=== PATIENT | male | born 1945 | race Caucasian/White ===

== ENCOUNTER 2021-03-21 14:56 | Emergency (ER) | payer MEDICARE ==
[2021-03-21] MEDS ORDERED: ACETAMINOPHEN TAB 500 MG TAB PO STA (16:31)
[2021-03-21] MEDS ORDERED: SODIUM CHLORIDE 0.9% 1,000 ML IV STA (16:33)
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
[2021-03-21 16:47] LABS: Appearance,Urine Clear (Clear); Bilirubin,Urine Negative (Negative); Blood,Urine Negative (Negative); Color,Urine Yellow; Glucose,Urine (UA) Negative (Negative); Ketones,Urine 1+ (Negative); Leukocyte Esterase,Urine Negative (Negative); Nitrite,Urine Negative (Negative); PH, Urine 5.5 (5.0-8.0); Protein,Urine Trace (Negative); Specific Gravity,Urine 1.024 (1.001-1.035); Urobilinogen,Urine <2.0 mg/dL (<2.0)
--- NOTE | 2021-03-21 16:55 | XR ---
EXAMINATION TYPE: XR chest 2V DATE OF EXAM: 03/21/2021 COMPARISON: None available HISTORY: Cough TECHNIQUE: Frontal and lateral views of the chest are obtained. FINDINGS: There are mild bibasilar streaky opacities. No pleural effusion, or pneumothorax seen. Th e cardiac silhouette size is within normal limits. The osseous structures are intact. IMPRESSION: Mild bibasilar opacities concerning for infiltrates in the appropriate clinical setting.
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
[2021-03-21] MEDS ORDERED: SODIUM CHLORIDE 0.9% 50 ML IVPB ONE (17:15)
[2021-03-21 17:22] LABS: Basophils % (A) 0 %; Eosinophils % (A) 0 %; HCT 45.5 % (39.0-53.0); HGB 15.5 gm/dL (13.0-17.5); Lymphocytes # (A) 1.7 k/uL (1.0-4.8); Lymphocytes % (A) 24 %; MCH 30.3 pg (25.0-35.0); MCHC 34.2 g/dL (31.0-37.0); MCV 88.6 fL (80.0-100.0); Mean Platelet Volume 7.2; Monocytes # (A) 0.3 k/uL (0-1.0); Monocytes % (A) 4 %; Neutrophils # (A) 4.8 k/uL (1.3-7.7); Neutrophils % (A) 69 %; Platelet Count 158 k/uL (150-450); RBC 5.13 m/uL (4.30-5.90); WBC 6.9 k/uL (3.8-10.6)
[2021-03-21 17:30] LABS: African American GFR (CKD) >90 (>60 ml/min/1.73 sqM); Anion Gap 11 mmol/L; Blood Urea Nitrogen 20 mg/dL (9-20); Calcium 8.2 mg/dL (8.4-10.2); Carbon Dioxide 24 mmol/L (22-30); Chloride 96 mmol/L (98-107); Glucose 153 mg/dL (74-99); Magnesium 2.1 mg/dL (1.6-2.3); Non-African American GFR(CKD) 83 (>60 ml/min/1.73 sqM); Sodium 131 mmol/L (137-145)
[2021-03-21 17:38] LABS: Potassium 5.6 mmol/L (3.5-5.1)
[2021-03-21] MEDS ORDERED: BAMLANIVIMAB (EUA) 700 MG, ETESEVIMAB (EUA) 1,400 MG in SODIUM CHLORIDE 0.9% 50 ML IVPB ONE (17:45)
[2021-03-21 18:54] VITALS: BP 126/66; PULSE 88; RESP 18; TEMP 98.2
== END 2021-03-21 19:58 | disposition home or self-care (01) ==
LOC: EC 14:56
DX: U07.1 COVID-19 (principal); J12.82 Pneumonia due to coronavirus disease 2019; Z87.891 Personal history of nicotine dependence; V89.2XXA Person injured in unspecified motor-vehicle accident, traffic, initial encounter; Y92.410 Unspecified street and highway as the place of occurrence of the external cause
CPT/HCPCS: 36415; 80048; 83735; 85025; 81003; 87635; 71046; 72125; 70450; 99284; 96360; J3490

== ENCOUNTER → 2023-02-20 | Outpatient (CLI) | payer MEDICARE ==
[2023-02-20 16:32] LABS: ALT 20 U/L (10-49); AST 27 U/L (14-35); Albumin/Globulin Ratio 1.29 Ratio (1.60-3.17); Alkaline Phosphatase 61 U/L (41-126); BUN/Creat Ratio 10.56 Ratio (12.00-20.00); Blood Urea Nitrogen 9.5 mg/dL (9.0-27.0); Carbon Dioxide 24.1 mmol/L (21.6-31.8); Chloride 98 mmol/L (96-109); Globulin 3.1 g/dL (1.6-3.3); Glucose 104 mg/dL (70-110); Sodium 135 mmol/L (135-145); Total Bilirubin 0.9 mg/dL (0.3-1.2); Total Protein 7.1 g/dL (6.2-8.2)
[2023-02-20 16:36] LABS: Basophils # (A) 0.02 X 10*3/uL (0.00-0.10); Basophils % (A) 0.3 %; Eosinophils # (A) 0.03 X 10*3/uL (0.04-0.35); Eosinophils % (A) 0.4 %; HCT 43.9 % (39.6-50.0); HGB 14.8 g/dL (13.0-17.0); Lymphocytes # (A) 2.14 X 10*3/uL (0.90-5.00); MCH 29.5 pg (27.0-32.0); MCHC 33.7 g/dL (32.0-37.0); MCV 87.5 FL (80.0-97.0); Mean Platelet Volume 9.9 FL (9.5-12.2); Monocytes # (A) 0.79 X 10*3/uL (0.20-1.00); Monocytes % (A) 11.1 %; NRBC Per 100 WBC 0 X 10*3/uL (0.00-0.01); Neutrophils # (A) 4.14 X 10*3/uL (1.80-7.70); Neutrophils % (A) 58.1 %; Platelet Count 171 X 10*3/uL (140-440); RBC 5.02 X 10*6/uL (4.40-5.60); WBC 7.13 X 10*3/uL (4.50-10.00)
== END | disposition home or self-care (01) ==
LOC: LABWHC1 10:25
PROVIDERS: ATTEND Family Medicine
DX: U07.1 COVID-19 (principal); R53.83 Other fatigue
CPT/HCPCS: 36415; 80053; 85025

== ENCOUNTER 2023-09-27 23:05 | Inpatient (IN) | payer MEDICARE ==
--- NOTE | 2023-09-27 23:36 | ED ---
Weakness HPI - General Chief complaint: Altered Mental Status Stated complaint: lethargy Time Seen by Provider: 09/27/23 23:09 Source: EMS, RN notes reviewed, old records reviewed Mode of arrival: EMS Limitations: altered mental status - History of Present Illness Initial comments: This is a 78-year-old male to the ER for evaluation. Patient coming in for increased debility for 2 days. Patient per family allegedly was playing golf just 3 to 4 days ago and today is unable to ambulate has been sleeping throughout the day and was pretty diaphoretic sweating and not feeling well at home. 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 and patient has no direct complaints MD Complaint: generalized weakness, lack of energy, difficulty walking -: days(s) Location: generalized Severity: moderate Severity scale (1-10): 5 Consistency: constant Improves with: none Worsens with: none Context: recent illness, history of similar Associated Symptoms: denies other symptoms - Related Data Previous Rx's Medication Instructions Recorded Acetaminophen Tab [Tylenol] 650 mg PO Q6HR PRN tab 10/01/23 Cephalexin [Keflex] 500 mg PO Q8HR 10 Days #30 cap 10/01/23 Tamsulosin [Flomax] 0.4 mg PO PC-BRKFST #30 cap 10/01/23 Allergies Allergy/AdvReac Type Severity Reaction Status Date / Time No Known Allergies Allergy Verified 09/28/23 09:43 Review of Systems ROS Statement: Those systems with pertinent positive or pertinent negative responses have been documented in the HPI. ROS Other: All systems not noted in ROS Statement are negative. Past Medical History Past Medical History: No Reported History History of Any Multi-Drug Resistant Organisms: None Reported Past Surgical History: No Surgical Hx Reported Past Psychological History: No Psychological Hx Reported Smoking Status: Former smoker Past Alcohol Use History: None Reported Past Drug Use History: None Reported General Exam Limitations: altered mental status General appearance: alert, in no apparent distress Head exam: Present: atraumatic, normocephalic, normal inspection Eye exam: Present: normal appearance, PERRL, EOMI. Absent: scleral icterus, conjunctival injection, periorbital swelling ENT exam: Present: normal exam, mucous membranes moist Neck exam: Present: normal inspection. Absent: tenderness, meningismus, lymphadenopathy Respiratory exam: Present: normal lung sounds bilaterally. Absent: respiratory distress, wheezes, rales, rhonchi, stridor Cardiovascular Exam: Present: regular rate, normal rhythm, normal heart sounds. Absent: systolic murmur, diastolic murmur, rubs, gallop, clicks GI/Abdominal exam: Present: soft, normal bowel sounds. Absent: distended, tenderness, guarding, rebound, rigid Extremities exam: Present: normal inspection, full ROM, normal capillary refill. Absent: tenderness, pedal edema, joint swelling, calf tenderness Back exam: Present: normal inspection Neurological exam: Present: alert, oriented X3, CN II-XII intact Psychiatric exam: Present: normal affect, normal mood Skin exam: Present: warm, dry, intact, normal color. Absent: rash Course Vital Signs 09/27/23 09/28/23 09/28/23 23:14 00:00 05:02 Temperature 99.6 F Pulse Rate 97 91 75 Respiratory 18 17 18 Rate Blood Pressure 160/73 150/67 146/72 O2 Sat by Pulse 93 L 95 97 Oximetry 09/28/23 09/28/23 09/28/23 06:00 07:00 07:38 Temperature 103.4 F H Pulse Rate 87 99 Respiratory 18 18 Rate Blood Pressure 132/101 172/84 O2 Sat by Pulse 93 L Oximetry 09/28/23 09/28/23 09/28/23 09:00 09:41 10:08 Temperature 99.6 F Pulse Rate Respiratory Rate Blood Pressure O2 Sat by Pulse 88 L 97 Oximetry 09/28/23 09/28/23 09/28/23 10:21 12:05 12:43 Temperature 99.1 F 98.1 F 98.6 F Pulse Rate 74 68 Respiratory 18 18 Rate Blood Pressure 120/74 125/70 O2 Sat by Pulse 97 98 Oximetry 09/28/23 09/28/23 09/28/23 15:00 16:16 19:34 Temperature 99.3 F 98.8 F 98.4 F Pulse Rate 78 75 Respiratory 16 16 Rate Blood Pressure 120/63 117/52 O2 Sat by Pulse 98 96 Oximetry 09/28/23 09/29/23 09/29/23 23:19 02:00 04:00 Temperature Pulse Rate 57 L 56 L 58 L Respiratory 17 16 Rate Blood Pressure 108/58 110/64 123/68 O2 Sat by Pulse 96 96 97 Oximetry 09/29/23 08:24 Temperature 98.9 F Pulse Rate 74 Respiratory 16 Rate Blood Pressure 135/78 O2 Sat by Pulse 97 Oximetry - Reevaluation(s) Reevaluation #1: 09/28/23 06:47 Records reviewed Reevaluation #2: 09/28/23 06:47 Symptoms unchanged Reevaluation #3: 09/28/23 06:47 Informed of results and questions answered Reevaluation #4: Was pt. sent in by a medical professional or institution (, SHERLYN, CLINICAL APPLICATION MANAGER, urgent care, hospital, or group home...) When possible be specific @ -no Did you speak to anyone other than the patient for history (EMS, parent, family, police, friend...)? What history was obtained from this source @ -no Did you review nursing and triage notes (agree or disagree)? Why? @ -agree Are old charts reviewed (outside hosp., previous admission, EMS record, old EKG, old radiological studies, urgent care reports/EKG's, group home records)? Report findings @ -yes Differential Diagnosis (chest pain, altered mental status, abdominal pain women, abdominal pain men, vaginal bleeding, weakness, fever, dyspnea, syncope, headache, dizziness, GI bleed, back pain, seizure, CVA, palpatations, mental health, musculoskeletal)? @ -prior EKG interpreted by me (3pts min.). @ -yes X-rays interpreted by me (1pt min.). @ -yes negative for acute disease CT interpreted by me (1pt min.). @ -Yes negative for acute disease U/S interpreted by me (1pt. min.). @ -no What testing was considered but not performed or refused? (CT, X-rays, U/S, labs)? Why? @ -none What meds were considered but not given or refused? Why? @ -none Did you discuss the management of the patient with other professionals (professionals i.e. SHERLYN Allan, CLINICAL APPLICATION MANAGER, lab, RT, psych nurse, social secretary, office equipment mechanic, teacher, ground intelligence officer, transplant case manager)? Give summary @ -no Was smoking cessation discussed for >3mins.? @ -no Was critical care preformed (if so, how long)? @ -no Were there social determinants of health that impacted care today? How? (Homelessness, low income, unemployed, alcoholism, drug addiction, transportation, low edu. Level, literacy, decrease access to med. care, alf, rehab)? @ -none Was there de-escalation of care discussed even if they declined (Discuss DNR or withdrawal of care, Hospice)? DNR status @ -no What co-morbidities impacted this encounter? (DM, HTN, Smoking, COPD, CAD, Cancer, CVA, ARF, Chemo, Hep., AIDS, mental health diagnosis, sleep apnea, morbid obesity)? @ -none Was patient admitted / discharged? Hospital course, mention meds given and route, prescriptions, significant lab abnormalities, going to OR and other pertinent info. @ - 78 Male will be admitted for PT OT due to weakness and urinary retention Admitted Undiagnosed new problem with uncertain prognosis? @ -no Drug Therapy requiring intensive monitoring for toxicity (Heparin, Nitro, Insulin, Cardizem)? @ -no Were any procedures done? @ -no Diagnosis/symptom? @ -Weakness debility Acute, or Chronic, or Acute on Chronic? @ -Acute Uncomplicated (without systemic symptoms) or Complicated (systemic symptoms)? @ -Complicated Side effects of treatment? @ -no Exacerbation, Progression, or Severe Exacerbation? @ -exacerbation Poses a threat to life or bodily function? How? (Chest pain, USA, MD, pneumonia, PE, COPD, DKA, ARF, appy, cholecystitis, CVA, Diverticulitis, Homicidal, Suicidal, threat to staff... and all critical care pts) @ -yes with extremes of age Reevaluation #5: Differential Weakness: Hypoglycemia, shock, sepsis, hyponatremia, anemia, infection, MD, ETOH, adverse medicine reaction, overdose, stroke, this is not meant to be an all-inclusive list. - Consultations Consultation #1: Spoke with Dr. Cruz who agrees to admit this patient EKG Findings - EKG Comments: EKG Findings:: EKG is sinus 94 [place] 187 QRS 118 QTc 420 - EKG Results: EKG: interpreted by JUVENCIO Medical Decision Making - Medical Decision Making 78 Male will be admitted for PT OT due to weakness and urinary retention - Lab Data Result diagrams: 10/01/23 12:39 10/01/23 12:39 Lab Results 09/27/23 09/27/23 09/27/23 Range/Units 23:44 23:56 23:56 WBC 7.7 (3.8-10.6) k/uL RBC 4.95 (4.30-5.90) m/uL Hgb 14.8 (13.0-17.5) gm/dL Hct 43.8 (39.0-53.0) % MCV 88.5 (80.0-100.0) fL MCH 29.8 (25.0-35.0) pg MCHC 33.7 (31.0-37.0) g/dL RDW 13.2 (11.5-15.5) % Plt Count 203 (150-450) k/uL MPV 7.8 Immature Gran % (Auto) % Absolute Nucleated RBC % Neutrophils % 87 % Lymphocytes % 6 % Monocytes % 5 % Eosinophils % 0 % Basophils % 0 % Immature Gran # (0.00-0.04) X 10*3/uL Neutrophils # 6.7 (1.3-7.7) k/uL Lymphocytes # 0.5 L (1.0-4.8) k/uL Monocytes # 0.4 (0-1.0) k/uL Eosinophils # 0.0 (0-0.7) k/uL Basophils # 0.0 (0-0.2) k/uL NRBC/100 WBC Diff (0.00-0.01) X 10*3/uL PT 11.2 (10.0-12.5) sec INR 1.0 (<1.2) APTT 23.1 (22.0-30.0) sec Sodium (137-145) mmol/L Potassium (3.5-5.1) mmol/L Chloride (98-107) mmol/L Carbon Dioxide (22-30) mmol/L Anion Gap mmol/L BUN (9-20) mg/dL Creatinine (0.66-1.25) mg/dL Est GFR (CKD-EPI) (>=60) Est GFR (CKD-EPI)AfAm (>60 ml/min/1.73 sqM) Est GFR (CKD-EPI)NonAf (>60 ml/min/1.73 sqM) BUN/Creatinine Ratio (12.00-20.00) Ratio Glucose (74-99) mg/dL Estimated Ave Glu mg/dL mg/dL Hemoglobin A1c (<=6.0) % Plasma Lactic Acid Dylan (0.7-2.0) mmol/L Calcium (8.4-10.2) mg/dL Phosphorus (2.5-4.5) mg/dL Magnesium (1.6-2.3) mg/dL Total Bilirubin (0.2-1.3) mg/dL AST (17-59) U/L ALT (4-49) U/L Alkaline Phosphatase (38-126) U/L Ammonia (<30) umol/L Creatine Kinase (55-170) U/L Troponin I (0.000-0.034) ng/mL Total Protein (6.3-8.2) g/dL Albumin (3.5-5.0) g/dL Globulin (1.6-3.3) g/dL Albumin/Globulin Ratio (1.60-3.17) Ratio Vitamin B12 (200.0-944.0) pg/mL Folate (4.40-31.00) ng/mL TSH (0.465-4.680) mIU/L Urine Color Urine Appearance (Clear) Urine pH (5.0-8.0) Ur Specific [place] (1.001-1.035) Urine Protein (Negative) Urine Glucose (UA) (Negative) Urine Ketones (Negative) Urine Blood (Negative) Urine Nitrite (Negative) Urine Bilirubin (Negative) Urine Urobilinogen (<2.0) mg/dL Ur Leukocyte Esterase (Negative) Urine RBC (0-5) /hpf Urine WBC (0-5) /hpf Ur Squamous Epith Cells (0-4) /hpf Urine Bacteria (None) /hpf Hyaline Casts (0-2) /lpf Urine Mucus (None) /hpf Urine Opiates Screen (NotDetected) Ur Oxycodone Screen (NotDetected) Urine Methadone Screen (NotDetected) Ur Barbiturates Screen (NotDetected) U Tricyclic Antidepress (NotDetected) Ur Phencyclidine Scrn (NotDetected) Ur Amphetamines Screen (NotDetected) U Methamphetamines Scrn (NotDetected) U Benzodiazepines Scrn (NotDetected) Urine Cocaine Screen (NotDetected) U Marijuana (THC) Screen (NotDetected) Influenza Type A (PCR) Not Detected (Not Detectd) Influenza Type B (PCR) Not Detected (Not Detectd) RSV (PCR) Not Detected (Not Detectd) SARS-CoV-2 (PCR) Not Detected (Not Detectd) 09/27/23 09/27/23 09/27/23 Range/Units 23:56 23:56 23:56 WBC (3.8-10.6) k/uL RBC (4.30-5.90) m/uL Hgb (13.0-17.5) gm/dL Hct (39.0-53.0) % MCV (80.0-100.0) fL MCH (25.0-35.0) pg MCHC (31.0-37.0) g/dL RDW (11.5-15.5) % Plt Count (150-450) k/uL MPV Immature Gran % (Auto) % Absolute Nucleated RBC % Neutrophils % % Lymphocytes % % Monocytes % % Eosinophils % % Basophils % % Immature Gran # (0.00-0.04) X 10*3/uL Neutrophils # (1.3-7.7) k/uL Lymphocytes # (1.0-4.8) k/uL Monocytes # (0-1.0) k/uL Eosinophils # (0-0.7) k/uL Basophils # (0-0.2) k/uL NRBC/100 WBC Diff (0.00-0.01) X 10*3/uL PT (10.0-12.5) sec INR (<1.2) APTT (22.0-30.0) sec Sodium 135 L (137-145) mmol/L Potassium 4.2 (3.5-5.1) mmol/L Chloride 101 (98-107) mmol/L Carbon Dioxide 21 L (22-30) mmol/L Anion Gap 13 mmol/L BUN 19 (9-20) mg/dL Creatinine 1.21 (0.66-1.25) mg/dL Est GFR (CKD-EPI) (>=60) Est GFR (CKD-EPI)AfAm 66 (>60 ml/min/1.73 sqM) Est GFR (CKD-EPI)NonAf 57 (>60 ml/min/1.73 sqM) BUN/Creatinine Ratio (12.00-20.00) Ratio Glucose 196 H (74-99) mg/dL Estimated Ave Glu mg/dL mg/dL Hemoglobin A1c (<=6.0) % Plasma Lactic Acid Dylan 1.9 (0.7-2.0) mmol/L Calcium 8.9 (8.4-10.2) mg/dL Phosphorus 3.3 (2.5-4.5) mg/dL Magnesium 2.1 (1.6-2.3) mg/dL Total Bilirubin 1.3 (0.2-1.3) mg/dL AST 80 H (17-59) U/L ALT 44 (4-49) U/L Alkaline Phosphatase 81 (38-126) U/L Ammonia (<30) umol/L Creatine Kinase (55-170) U/L Troponin I 0.019 (0.000-0.034) ng/mL Total Protein 7.3 (6.3-8.2) g/dL Albumin 4.1 (3.5-5.0) g/dL Globulin (1.6-3.3) g/dL Albumin/Globulin Ratio (1.60-3.17) Ratio Vitamin B12 (200.0-944.0) pg/mL Folate (4.40-31.00) ng/mL TSH 4.530 (0.465-4.680) mIU/L Urine Color Urine Appearance (Clear) Urine pH (5.0-8.0) Ur Specific [place] (1.001-1.035) Urine Protein (Negative) Urine Glucose (UA) (Negative) Urine Ketones (Negative) Urine Blood (Negative) Urine Nitrite (Negative) Urine Bilirubin (Negative) Urine Urobilinogen (<2.0) mg/dL Ur Leukocyte Esterase (Negative) Urine RBC (0-5) /hpf Urine WBC (0-5) /hpf Ur Squamous Epith Cells (0-4) /hpf Urine Bacteria (None) /hpf Hyaline Casts (0-2) /lpf Urine Mucus (None) /hpf Urine Opiates Screen (NotDetected) Ur Oxycodone Screen (NotDetected) Urine Methadone Screen (NotDetected) Ur Barbiturates Screen (NotDetected) U Tricyclic Antidepress (NotDetected) Ur Phencyclidine Scrn (NotDetected) Ur Amphetamines Screen (NotDetected) U Methamphetamines Scrn (NotDetected) U Benzodiazepines Scrn (NotDetected) Urine Cocaine Screen (NotDetected) U Marijuana (THC) Screen (NotDetected) Influenza Type A (PCR) (Not Detectd) Influenza Type B (PCR) (Not Detectd) RSV (PCR) (Not Detectd) SARS-CoV-2 (PCR) (Not Detectd) 09/27/23 09/28/23 09/28/23 Range/Units 23:56 00:17 00:17 WBC (3.8-10.6) k/uL RBC (4.30-5.90) m/uL Hgb (13.0-17.5) gm/dL Hct (39.0-53.0) % MCV (80.0-100.0) fL MCH (25.0-35.0) pg MCHC (31.0-37.0) g/dL RDW (11.5-15.5) % Plt Count (150-450) k/uL MPV Immature Gran % (Auto) % Absolute Nucleated RBC % Neutrophils % % Lymphocytes % % Monocytes % % Eosinophils % % Basophils % % Immature Gran # (0.00-0.04) X 10*3/uL Neutrophils # (1.3-7.7) k/uL Lymphocytes # (1.0-4.8) k/uL Monocytes # (0-1.0) k/uL Eosinophils # (0-0.7) k/uL Basophils # (0-0.2) k/uL NRBC/100 WBC Diff (0.00-0.01) X 10*3/uL PT (10.0-12.5) sec INR (<1.2) APTT (22.0-30.0) sec Sodium (137-145) mmol/L Potassium (3.5-5.1) mmol/L Chloride (98-107) mmol/L Carbon Dioxide (22-30) mmol/L Anion Gap mmol/L BUN (9-20) mg/dL Creatinine (0.66-1.25) mg/dL Est GFR (CKD-EPI) (>=60) Est GFR (CKD-EPI)AfAm (>60 ml/min/1.73 sqM) Est GFR (CKD-EPI)NonAf (>60 ml/min/1.73 sqM) BUN/Creatinine Ratio (12.00-20.00) Ratio Glucose (74-99) mg/dL Estimated Ave Glu mg/dL 134 mg/dL Hemoglobin A1c 6.3 H (<=6.0) % Plasma Lactic Acid Dylan (0.7-2.0) mmol/L Calcium (8.4-10.2) mg/dL Phosphorus (2.5-4.5) mg/dL Magnesium (1.6-2.3) mg/dL Total Bilirubin (0.2-1.3) mg/dL AST (17-59) U/L ALT (4-49) U/L Alkaline Phosphatase (38-126) U/L Ammonia (<30) umol/L Creatine Kinase (55-170) U/L Troponin I (0.000-0.034) ng/mL Total Protein (6.3-8.2) g/dL Albumin (3.5-5.0) g/dL Globulin (1.6-3.3) g/dL Albumin/Globulin Ratio (1.60-3.17) Ratio Vitamin B12 926.0 (200.0-944.0) pg/mL Folate 31.90 H (4.40-31.00) ng/mL TSH (0.465-4.680) mIU/L Urine Color Urine Appearance (Clear) Urine pH (5.0-8.0) Ur Specific [place] (1.001-1.035) Urine Protein (Negative) Urine Glucose (UA) (Negative) Urine Ketones (Negative) Urine Blood (Negative) Urine Nitrite (Negative) Urine Bilirubin (Negative) Urine Urobilinogen (<2.0) mg/dL Ur Leukocyte Esterase (Negative) Urine RBC (0-5) /hpf Urine WBC (0-5) /hpf Ur Squamous Epith Cells (0-4) /hpf Urine Bacteria (None) /hpf Hyaline Casts (0-2) /lpf Urine Mucus (None) /hpf Urine Opiates Screen (NotDetected) Ur Oxycodone Screen (NotDetected) Urine Methadone Screen (NotDetected) Ur Barbiturates Screen (NotDetected) U Tricyclic Antidepress (NotDetected) Ur Phencyclidine Scrn (NotDetected) Ur Amphetamines Screen (NotDetected) U Methamphetamines Scrn (NotDetected) U Benzodiazepines Scrn (NotDetected) Urine Cocaine Screen (NotDetected) U Marijuana (THC) Screen (NotDetected) Influenza Type A (PCR) (Not Detectd) Influenza Type B (PCR) (Not Detectd) RSV (PCR) (Not Detectd) SARS-CoV-2 (PCR) (Not Detectd) 09/28/23 09/28/23 09/28/23 Range/Units 03:20 03:20 14:27 WBC (3.8-10.6) k/uL RBC (4.30-5.90) m/uL Hgb (13.0-17.5) gm/dL Hct (39.0-53.0) % MCV (80.0-100.0) fL MCH (25.0-35.0) pg MCHC (31.0-37.0) g/dL RDW (11.5-15.5) % Plt Count (150-450) k/uL MPV Immature Gran % (Auto) % Absolute Nucleated RBC % Neutrophils % % Lymphocytes % % Monocytes % % Eosinophils % % Basophils % % Immature Gran # (0.00-0.04) X 10*3/uL Neutrophils # (1.3-7.7) k/uL Lymphocytes # (1.0-4.8) k/uL Monocytes # (0-1.0) k/uL Eosinophils # (0-0.7) k/uL Basophils # (0-0.2) k/uL NRBC/100 WBC Diff (0.00-0.01) X 10*3/uL PT (10.0-12.5) sec INR (<1.2) APTT (22.0-30.0) sec Sodium (137-145) mmol/L Potassium (3.5-5.1) mmol/L Chloride (98-107) mmol/L Carbon Dioxide (22-30) mmol/L Anion Gap mmol/L BUN (9-20) mg/dL Creatinine (0.66-1.25) mg/dL Est GFR (CKD-EPI) (>=60) Est GFR (CKD-EPI)AfAm (>60 ml/min/1.73 sqM) Est GFR (CKD-EPI)NonAf (>60 ml/min/1.73 sqM) BUN/Creatinine Ratio (12.00-20.00) Ratio Glucose (74-99) mg/dL Estimated Ave Glu mg/dL mg/dL Hemoglobin A1c (<=6.0) % Plasma Lactic Acid Dylan (0.7-2.0) mmol/L Calcium (8.4-10.2) mg/dL Phosphorus (2.5-4.5) mg/dL Magnesium (1.6-2.3) mg/dL Total Bilirubin (0.2-1.3) mg/dL AST (17-59) U/L ALT (4-49) U/L Alkaline Phosphatase (38-126) U/L Ammonia (<30) umol/L Creatine Kinase 1010 H* (55-170) U/L Troponin I (0.000-0.034) ng/mL Total Protein (6.3-8.2) g/dL Albumin (3.5-5.0) g/dL Globulin (1.6-3.3) g/dL Albumin/Globulin Ratio (1.60-3.17) Ratio Vitamin B12 (200.0-944.0) pg/mL Folate (4.40-31.00) ng/mL TSH (0.465-4.680) mIU/L Urine Color Yellow Urine Appearance Clear (Clear) Urine pH 5.5 (5.0-8.0) Ur Specific [place] 1.019 (1.001-1.035) Urine Protein Trace H (Negative) Urine Glucose (UA) Trace H (Negative) Urine Ketones 1+ H (Negative) Urine Blood Small H (Negative) Urine Nitrite Negative (Negative) Urine Bilirubin Negative (Negative) Urine Urobilinogen <2.0 (<2.0) mg/dL Ur Leukocyte Esterase Negative (Negative) Urine RBC 8 H (0-5) /hpf Urine WBC 1 (0-5) /hpf Ur Squamous Epith Cells <1 (0-4) /hpf Urine Bacteria Rare H (None) /hpf Hyaline Casts 4 H (0-2) /lpf Urine Mucus Rare H (None) /hpf Urine Opiates Screen Not Detected (NotDetected) Ur Oxycodone Screen Not Detected (NotDetected) Urine Methadone Screen Not Detected (NotDetected) Ur Barbiturates Screen Not Detected (NotDetected) U Tricyclic Antidepress Not Detected (NotDetected) Ur Phencyclidine Scrn Not Detected (NotDetected) Ur Amphetamines Screen Not Detected (NotDetected) U Methamphetamines Scrn Not Detected (NotDetected) U Benzodiazepines Scrn Not Detected (NotDetected) Urine Cocaine Screen Not Detected (NotDetected) U Marijuana (THC) Screen Not Detected (NotDetected) Influenza Type A (PCR) (Not Detectd) Influenza Type B (PCR) (Not Detectd) RSV (PCR) (Not Detectd) SARS-CoV-2 (PCR) (Not Detectd) 09/28/23 09/29/23 09/29/23 Range/Units 14:27 07:24 07:24 WBC 5.30 (3.8-10.6) k/uL RBC 4.18 L (4.30-5.90) m/uL Hgb 12.5 L (13.0-17.5) gm/dL Hct 37.6 L (39.0-53.0) % MCV 90.0 (80.0-100.0) fL MCH 29.9 (25.0-35.0) pg MCHC 33.2 (31.0-37.0) g/dL RDW 13.4 (11.5-15.5) % Plt Count 166 (150-450) k/uL MPV 9.8 Immature Gran % (Auto) 0.80 % Absolute Nucleated RBC 0 % Neutrophils % 63.1 % Lymphocytes % 26.4 % Monocytes % 8.7 % Eosinophils % 0.6 % Basophils % 0.4 % Immature Gran # 0.04 (0.00-0.04) X 10*3/uL Neutrophils # 3.35 (1.3-7.7) k/uL Lymphocytes # 1.40 (1.0-4.8) k/uL Monocytes # 0.46 (0-1.0) k/uL Eosinophils # 0.03 L (0-0.7) k/uL Basophils # 0.02 (0-0.2) k/uL NRBC/100 WBC Diff 0 (0.00-0.01) X 10*3/uL PT (10.0-12.5) sec INR (<1.2) APTT (22.0-30.0) sec Sodium 139 (137-145) mmol/L Potassium 4.0 (3.5-5.1) mmol/L Chloride 104 (98-107) mmol/L Carbon Dioxide 22.5 (22-30) mmol/L Anion Gap 12.50 H mmol/L BUN 11.7 (9-20) mg/dL Creatinine 0.8 (0.66-1.25) mg/dL Est GFR (CKD-EPI) 90 (>=60) Est GFR (CKD-EPI)AfAm (>60 ml/min/1.73 sqM) Est GFR (CKD-EPI)NonAf (>60 ml/min/1.73 sqM) BUN/Creatinine Ratio 14.62 (12.00-20.00) Ratio Glucose 150 H (74-99) mg/dL Estimated Ave Glu mg/dL mg/dL Hemoglobin A1c (<=6.0) % Plasma Lactic Acid Dylan (0.7-2.0) mmol/L Calcium 8.0 L (8.4-10.2) mg/dL Phosphorus (2.5-4.5) mg/dL Magnesium 2.2 (1.6-2.3) mg/dL Total Bilirubin 0.5 (0.2-1.3) mg/dL AST 86 H (17-59) U/L ALT 56 H (4-49) U/L Alkaline Phosphatase 67 (38-126) U/L Ammonia <9 (<30) umol/L Creatine Kinase 679 H (55-170) U/L Troponin I (0.000-0.034) ng/mL Total Protein 5.9 L (6.3-8.2) g/dL Albumin 3.4 L (3.5-5.0) g/dL Globulin 2.5 (1.6-3.3) g/dL Albumin/Globulin Ratio 1.36 L (1.60-3.17) Ratio Vitamin B12 (200.0-944.0) pg/mL Folate (4.40-31.00) ng/mL TSH (0.465-4.680) mIU/L Urine Color Urine Appearance (Clear) Urine pH (5.0-8.0) Ur Specific [place] (1.001-1.035) Urine Protein (Negative) Urine Glucose (UA) (Negative) Urine Ketones (Negative) Urine Blood (Negative) Urine Nitrite (Negative) Urine Bilirubin (Negative) Urine Urobilinogen (<2.0) mg/dL Ur Leukocyte Esterase (Negative) Urine RBC (0-5) /hpf Urine WBC (0-5) /hpf Ur Squamous Epith Cells (0-4) /hpf Urine Bacteria (None) /hpf Hyaline Casts (0-2) /lpf Urine Mucus (None) /hpf Urine Opiates Screen (NotDetected) Ur Oxycodone Screen (NotDetected) Urine Methadone Screen (NotDetected) Ur Barbiturates Screen (NotDetected) U Tricyclic Antidepress (NotDetected) Ur Phencyclidine Scrn (NotDetected) Ur Amphetamines Screen (NotDetected) U Methamphetamines Scrn (NotDetected) U Benzodiazepines Scrn (NotDetected) Urine Cocaine Screen (NotDetected) U Marijuana (THC) Screen (NotDetected) Influenza Type A (PCR) (Not Detectd) Influenza Type B (PCR) (Not Detectd) RSV (PCR) (Not Detectd) SARS-CoV-2 (PCR) (Not Detectd) - EKG Data -: EKG Interpreted by Me - Radiology Data Radiology results: report reviewed (X-ray and CT pelvis is negative for acute disease), image reviewed Disposition Clinical Impression: Altered mental status, Weakness, Urinary retention Disposition: ADMITTED IP TO THIS [facility] Condition: Stable Is patient prescribed a controlled substance at d/c from ED?: No Time of Disposition: 06:45
[2023-09-28 00:22] LABS: Basophils % (A) 0 %; Eosinophils % (A) 0 %; HCT 43.8 % (39.0-53.0); HGB 14.8 gm/dL (13.0-17.5); Lymphocytes # (A) 0.5 k/uL (1.0-4.8); Lymphocytes % (A) 6 %; MCH 29.8 pg (25.0-35.0); MCHC 33.7 g/dL (31.0-37.0); MCV 88.5 fL (80.0-100.0); Mean Platelet Volume 7.8; Monocytes # (A) 0.4 k/uL (0-1.0); Monocytes % (A) 5 %; Neutrophils # (A) 6.7 k/uL (1.3-7.7); Neutrophils % (A) 87 %; Platelet Count 203 k/uL (150-450); RBC 4.95 m/uL (4.30-5.90); RDW 13.2 % (11.5-15.5); WBC 7.7 k/uL (3.8-10.6)
[2023-09-28] MEDS: SODIUM CHLORIDE 0.9% 1,000 ML IV STA ×2 (00:28→02:27)
[2023-09-28 00:32] LABS: ALT 44 U/L (4-49); AST 80 U/L (17-59); African American GFR (CKD) 66 (>60 ml/min/1.73 sqM); Albumin 4.1 g/dL (3.5-5.0); Alkaline Phosphatase 81 U/L (38-126); Anion Gap 13 mmol/L; Blood Urea Nitrogen 19 mg/dL (9-20); Calcium 8.9 mg/dL (8.4-10.2); Carbon Dioxide 21 mmol/L (22-30); Chloride 101 mmol/L (98-107); Glucose 196 mg/dL (74-99); Magnesium 2.1 mg/dL (1.6-2.3); Non-African American GFR(CKD) 57 (>60 ml/min/1.73 sqM); Phosphorus 3.3 mg/dL (2.5-4.5); Potassium 4.2 mmol/L (3.5-5.1); Sodium 135 mmol/L (137-145); Total Bilirubin 1.3 mg/dL (0.2-1.3); Total Protein 7.3 g/dL (6.3-8.2)
[2023-09-28 00:52] LABS: Partial Thromboplastin Time 23.1 sec (22.0-30.0); Prothrombin Time 11.2 sec (10.0-12.5)
--- NOTE | 2023-09-28 02:32 | XR ---
EXAM: XR Chest, 2 Views CLINICAL HISTORY: weak TECHNIQUE: Frontal and lateral views of the chest. COMPARISON: 03/21/21 FINDINGS: Lungs: Unremarkable. No consolidation. Pleural space: Unremarkable. Mediastinum: Unremarkable. Normal mediastinal contour. Bones/joints: No acute findings. IMPRESSION: No acute findings.
[2023-09-28 04:02] LABS: Appearance,Urine Clear (Clear); Bacteria,Urine Rare /hpf; Bilirubin,Urine Negative (Negative); Blood,Urine Small (Negative); Color,Urine Yellow; Glucose,Urine (UA) Trace (Negative); Hyaline Casts,Urine 4 /lpf (0-2); Ketones,Urine 1+ (Negative); Leukocyte Esterase,Urine Negative (Negative); Mucus,Urine Rare /hpf; Nitrite,Urine Negative (Negative); PH, Urine 5.5 (5.0-8.0); Protein,Urine Trace (Negative); RBC,Urine 8 /hpf (0-5); Specific Gravity,Urine 1.019 (1.001-1.035); Squamous Epithelial Cell,Urine <1 /hpf (0-4); Urobilinogen,Urine <2.0 mg/dL (<2.0); WBC,Urine 1 /hpf (0-5)
[2023-09-28] MEDS: SODIUM CHLORIDE 0.9% 1,000 ML BAG IV STA (04:07)
--- NOTE | 2023-09-28 04:44 | CT ---
EXAM: CT Abdomen and Pelvis With Intravenous Contrast CLINICAL HISTORY: increasing weakness and fatigue over the last 3 days and declining mental status. In morning pt. Was able walking slowly, and now pt. is unable to walk. now has abdominal pain. TECHNIQUE: Axial computed tomography images of the abdomen and pelvis with intravenous contrast. CTDI is 23.7 mGy and DLP is 1209.4 mGy-cm. This CT exam was performed using one or more of the following dose reduction techniques: automated exposure control, adjustment of the mA and/or kV according to patient size, and/or use of iterative reconstruction technique. Coronal and sagittal reformatted images were created and reviewed. 471 images COMPARISON: No relevant prior studies available. FINDINGS: Lung bases: Unremarkable. No mass. No consolidation. ABDOMEN: Liver: Mildly enlarged fatty liver. Gallbladder and bile ducts: Unremarkable. No calcified stones. No ductal dilation. Pancreas: Unremarkable. No mass. No ductal dilation. Spleen: Unremarkable. No splenomegaly. Adrenals: Unremarkable. No mass. Kidneys and ureters: Unremarkable. No solid mass. No hydronephrosis. Stomach and bowel: Mild colonic diverticulosis. No obstruction. No mucosal thickening. PELVIS: Appendix: Normal appendix. Bladder: Bladder contains a Roldan catheter balloon and moderate amount of gas with asymmetrical posterior wall thickening measuring up to 10 mm on series 203 image 75, can represent muscle hypertrophy versus cystitis. Reproductive: Unremarkable as visualized. ABDOMEN and PELVIS: Intraperitoneal space: Unremarkable. No free air. No significant fluid collection. Bones/joints: Advanced degenerative disc disease at L5-S1 causing severe right neuroforaminal narrowing, likely compressing the right exiting nerve root at L5. 5 mm anterolisthesis of L4 on L5. Soft tissues: Unremarkable. Vasculature: Small amount of atherosclerotic calcifications. No abdominal aortic aneurysm. Lymph nodes: Unremarkable. No enlarged lymph nodes. IMPRESSION: Bladder contains a Roldan catheter balloon and moderate amount of gas with asymmetrical posterior wall thickening measuring can be due to muscle hypertrophy versus cystitis. Please correlate with clinical and laboratory findings.
[2023-09-28] MEDS ORDERED: NALOXONE 0.4 MG/ML 1 ML VIAL IV PRN (06:44)
[2023-09-28] MEDS ORDERED: MORPHINE SULFATE 4 MG/ML SYRINGE IV PRN (06:44)
[2023-09-28] MEDS ORDERED: ONDANSETRON 4 MG/2 ML VIAL IVP PRN (06:44)
[2023-09-28] MEDS: SODIUM CHLORIDE 0.9% 1,000 ML IV SCH ×2 (07:08→17:06)
[2023-09-28] MEDS: IBUPROFEN IV 800 MG in SODIUM CHLORIDE 0.9% 250 ML IV ONE (07:36)
[2023-09-28] MEDS: ACETAMINOPHEN IV (For NPO) 1,000 MG in EMPTY BAG 1 BAG IVPB STA (08:16)
[2023-09-28 08:20] LABS: Amphetamine Screen,Urine Not Detected (NotDetected); Barbiturate Screen,Urine Not Detected (NotDetected); Benzodiazepines Screen,Urine Not Detected (NotDetected); Cocaine Screen,Urine Not Detected (NotDetected); Methadone Screen, Urine Not Detected (NotDetected); Opiate Screen,Urine Not Detected (NotDetected); Oxycodone Screen, Urine Not Detected (NotDetected); Phencyclidine Screen,Urine Not Detected (NotDetected); Tricyclic Antidepressant,Urine Not Detected (NotDetected); Urn Cannabinoid Scrn Not Detected (NotDetected)
--- NOTE | 2023-09-28 10:12 | P.HPIM ---
History of Present Illness H&P Date: 09/28/23 Chief Complaint: Weakness and urinary retention This is a 78-year-old male that comes to the office early. His son was at bedside reports that he went golfing 9 holes 1 week ago. That he had seen him on Friday and that he had a fall at home and it was just not himself. He lives with his daughter primarily. She works regularly and is not there all the time. His son reports other history from the daughter while the patient is rather quiet. The patient indicates that is just not feeling himself. His son reports that he had visited and his father had to urinate quite bad but indicates he was unable to go. He also indicates he is fallen several times this week in the emergency room was found to have significant urinary retention 800+ cc in his bladder. When examining today he was found to have a pulse ox in the 80s on room air. Currently denies any chest pains pressure shortness of breath nausea or vomiting. Vital signs are currently stable however the patient did have a fever of 103.4 early this morning. Labs show essentially normal except for glucose of 196. AST was slightly elevated, CT abdomen pelvis was reviewed. Review of Systems All systems: negative Past Medical History Past Medical History: No Reported History History of Any Multi-Drug Resistant Organisms: None Reported Past Surgical History: No Surgical Hx Reported Past Psychological History: No Psychological Hx Reported Smoking Status: Former smoker Past Alcohol Use History: None Reported Past Drug Use History: None Reported Medications and Allergies Home Medications Medication Instructions Recorded Confirmed Type No Known Home Medications 03/21/21 09/28/23 History Allergies Allergy/AdvReac Type Severity Reaction Status Date / Time No Known Allergies Allergy Verified 09/28/23 09:43 Physical Exam Vitals: Vital Signs Temp Pulse Resp BP Pulse Ox 09/28/23 09:41 88 L 09/28/23 09:00 99.6 F 09/28/23 07:38 99 18 172/84 93 L 09/28/23 07:00 103.4 F H 09/28/23 06:00 87 18 132/101 09/28/23 05:02 75 18 146/72 97 09/28/23 00:00 91 17 150/67 95 09/27/23 23:14 99.6 F 97 18 160/73 93 L Intake and Output 09/27/23 09/28/23 09/28/23 22:59 06:59 14:59 Output Total 1250 Balance -1250 Output: Urine 1250 Uretheral (Roldan) 950 Other: Weight 99.79 kg GENERAL: Elderly male answering questions appropriately but slowly. HEAD: Atraumatic, normocephalic. EYES: Pupils equal round and reactive to light, extraocular movements intact, sclera anicteric, conjunctiva are normal. ENT:nares patent, oropharynx clear without exudates. Moist mucous membranes. NECK: Normal range of motion, supple without lymphadenopathy or JVD, no thyromegaly LUNGS: Breath sounds clear to auscultation bilaterally and equal. No wheezes rales or rhonchi. HEART: Regular rate and rhythm without murmurs, rubs or gallops.S1S2 Normal ABDOMEN: Soft, nontender, normoactive bowel sounds. No guarding, no rebound. No masses appreciated. EXTREMITIES: Normal range of motion, no pitting or edema. No clubbing or cyanosis. NEUROLOGICAL: Cranial nerves II through XII grossly intact. Normal speech, gait exam deferred. PSYCH: Normal mood, normal affect. SKIN: Warm, Dry, normal turgor, no rashes or lesions noted. Results CBC & Chem 7: 09/27/23 23:56 09/27/23 23:56 Labs: Abnormal Lab Results - Last 24 Hours (Table) 09/27/23 09/27/23 09/28/23 Range/Units 23:56 23:56 03:20 Lymphocytes # 0.5 L (1.0-4.8) k/uL Sodium 135 L (137-145) mmol/L Carbon Dioxide 21 L (22-30) mmol/L Glucose 196 H (74-99) mg/dL AST 80 H (17-59) U/L Urine Protein Trace H (Negative) Urine Glucose (UA) Trace H (Negative) Urine Ketones 1+ H (Negative) Urine Blood Small H (Negative) Urine RBC 8 H (0-5) /hpf Urine Bacteria Rare H (None) /hpf Hyaline Casts 4 H (0-2) /lpf Urine Mucus Rare H (None) /hpf CT scan - abdomen: report reviewed Assessment and Plan Plan: Recurrent falls Fever Urinary retention Elevated glucose Confusion Will repeat his labs this morning, continue Rocephin given by the ER, continue the ibuprofen and Tylenol as needed, CT brain with and without contrast to evaluate for underlying bleed or mass to the episodes of falls, physical therapy to evaluate, consult neurology regarding this, and reevaluate next 24 hours
--- NOTE | 2023-09-28 11:07 | CT ---
EXAMINATION TYPE: CT brain wo con DATE OF EXAM: 09/28/2023 COMPARISON: 03/21/2021 INDICATION: Confusion falls, evaluate for occult bleed or mass DLP: 1168.4 mGycm, Automated exposure control for dose reduction was used. CONTRAST: None CT of the brain is performed utilizing 3 mm thick sections through the posterior fossa and 3 mm thick sections through the remaining calvarium. Study is performed within 24 hours of arrival to the hosp [facility]. No abnormal hyperdensity is present to suggest an acute intracranial hemorrhage. No mass lesion is evident. No acute infarcts are evident. Ventricles and sulci are mildly prominent for the patient age. Paranasal sinuses and mastoid air cells within the [id number] are clear. IMPRESSION: 1. Mild age-related atrophy. 2. No acute intracranial process. Follow-up MRI can be performed as clinically indicated
--- NOTE | 2023-09-28 13:12 | P.CNNES ---
History of Present Illness Consult date: 09/28/23 Requesting physician: Rashad Cruz Reason for Consult: mild confusion and falls History of Present Illness: This is a 78-year-old gentleman present emergency department because of fall and confusion. Some of the history is obtained from the patient's daughter was at bedside as well as the nurse. According to the daughter he has been having multiple fall episode in the last 1 week. It seems the patient is having g eneralized weakness as a result he falls and denies any symptoms prior to that. He denies any loss of consciousness with these episodes. Denies any head trauma. The daughter is unsure if he is having head trauma or not. He denies any focal weakness. Denies any neck pain headache or lower back pain. Denies any numbness, visual disturbance or speech difficulty. Per the nurse, notified her that the patient has been having urgency to urinate but he has not been urinating. Seems the patient has been retaining urine was relieved by the Roldan catheter. Also seems the patient had a temperature of 103 today. Patient denies any history of stroke or seizure. It seems when he presented to the hospital he was somewhat confused but his mentation and is drastically better. Patient has been in the warm weather recently in which he was golfing last Friday and has history of heat stroke. Patient is having steady walking recently. Usually he walks without any assistance and walks slowly. It seems that the patient has been on Motrin because of knee pain after falls and unsure if patient was having fevers and was being mask by medication per the nurse. Some of the workup during this hospital visit consisted of: Initial presentation patient temperature was 99.6 and was as high as 103.4 Fahrenheit and no further fevers afterwards. WBC Is normal and at 7.7 thousand. AST is 80, TSH is 4.53 Sodium is 135 BUN/creatinine is within normal limits Serum glucose is 196 Plasma lactic acid vein is 1.9 Serum is 8.9, phosphorus 3.3 Urine analysis seems unremarkable for urinary tract infection Reduction is not detected CT abdomen and pelvis is reported as bladder contains a Roldan catheter balloon and moderate amount of gas with asymmetry posterior wall thickening measuring can be due to muscle hypertrophy versus cystitis. CT head: Head is reported as mild age related atrophy. No acute intracranial process. I reviewed the CT and I agree with the report. Review of Systems Positive and negative as per HPI. Past Medical History Past Medical History: No Reported History History of Any Multi-Drug Resistant Organisms: None Reported Past Surgical History: No Surgical Hx Reported Past Psychological History: No Psychological Hx Reported Smoking Status: Former smoker Past Alcohol Use History: None Reported Past Drug Use History: None Reported Medications and Allergies Home Medications Medication Instructions Recorded Confirmed Type No Known Home Medications 03/21/21 09/28/23 History Allergies Allergy/AdvReac Type Severity Reaction Status Date / Time No Known Allergies Allergy Verified 09/28/23 09:43 Physical Examination - Vital Signs Vital Signs: Vital Signs Temp Pulse Resp BP Pulse Ox 09/28/23 12:43 98.6 F 09/28/23 12:05 98.1 F 68 18 125/70 98 09/28/23 10:21 99.1 F 74 18 120/74 97 09/28/23 10:08 97 09/28/23 09:41 88 L 09/28/23 09:00 99.6 F 09/28/23 07:38 99 18 172/84 93 L 09/28/23 07:00 103.4 F H 09/28/23 06:00 87 18 132/101 09/28/23 05:02 75 18 146/72 97 09/28/23 00:00 91 17 150/67 95 09/27/23 23:14 99.6 F 97 18 160/73 93 L Intake and Output 09/27/23 09/28/23 09/28/23 22:59 06:59 14:59 Output Total 1250 Balance -1250 Output: Urine 1250 Uretheral (Roldan) 950 Other: Weight 99.79 kg GENERAL: The patient is lying in bed and is not in acute distress. HENT: Supple neck. NEUROLOGICAL: Higher mental function: The patient is awake, alert, oriented to self, place. He correctly stated the current year but stated the month is Apr or May then I notified him the correct month. After 5 minutes he correctly responded to the correct month. Is following simple commands. No aphasia and no neglect. Cranial nerves: The pupils are round, equal and reactive to light and accommodation. Visual merchant are full to confrontation throughout. Extraocular movement is intact no nystagmus is noted. Facial sensation is normal to touch throughout. The facial strength is normal throughout. Hearing is midly decreased bilaterally to hand rub. Tongue is midline and moved [id number] without any difficulty. No dysarthria is noted. Shoulder shrug is normal bilaterally. Motor: Gait is slow taking short step and not requiring any asssitance (per the daughter that is his baseline). The strength is 5 over 5 throughout. Normal tone and bulk. Cerebellum: Normal finger to nose bilaterally. Sensation: Sensation is normal to touch throughout. Reflexes (right/left): :Limited since was resisting. Plantars are mute bilaterally. Results - Laboratory Findings CBC and BMP: 09/27/23 23:56 09/27/23 23:56 Abnormal Lab Findings: Abnormal Labs 09/27/23 09/27/23 09/28/23 23:56 23:56 03:20 Lymphocytes # 0.5 L Sodium 135 L Carbon Dioxide 21 L Glucose 196 H AST 80 H Urine Protein Trace H Urine Glucose (UA) Trace H Urine Ketones 1+ H Urine Blood Small H Urine RBC 8 H Urine Bacteria Rare H Hyaline Casts 4 H Urine Mucus Rare H Assessment and Plan Assessment: This is a 78-year-old gentleman who has been having multiple falls in the past 1 week confusion as well as urinary urgency. He states that his whole body is giving out but denies any loss of consciousness. Denies any headache, nausea vomiting neck pain or back pain. Daughter feels he has been having unsteady walking. His temperature in our facility was as high as 103.4 once and wbc normal. On examination he had no focal deficit but is walking was very slow and per the daughter that is baseline. Recurrent falls with altered mental status: Rule out underlying infection. Had one-time fever of 103.4 but the white blood cell was normal. Examination patient mentation has improved and had no focal deficit other than slow gait (daughter stated baseline). Unknown exact etiology. Urinary urgency and retention resolved patient has a Roldan catheter: Urine analysis is negative for underlying UTI that appearant. History of heat stroke Plan: * I ordered MRI of the brain and cervical spine * Ordered routine EEG and carotid duplex, CT lumbar spine and a 2D echo * Ordered CK level, vitamin B12, folate, ammonia * Blood cultures is ordered and is pending. Consider urinary culture even though the UA is negative since the patient is been having urinary retention with fever vs repeat urine analysis if unknown source of infection * Consider infection disease consultation regarding the fever. If unknown source of infection will recommend pursuing lumbar puncture * PT and OT are consulted * For the rest of the medical management the primary and other specialist. * Plan discussed with the patient, his daughter was at bedside and his nurse Thank you for the consultation Dr. Schultz will resume neurology service tomorrow AM. Time with Patient: Greater than 30
--- NOTE | 2023-09-28 14:00 | CT ---
EXAMINATION TYPE: CT lumbar spine wo con DATE OF EXAM: 09/28/2023 COMPARISON: None HISTORY: Unsteady gait with falls CT DLP: 1021.6 mGycm CONTRAST: None TECHNIQUE: CT of the lumbar spine is performed on a spiral scan at 3 mm thick sections. Reconstructed images are performed in the coronal and sagittal planes. FINDINGS: T12-L1: No focal disc herniation or significant disc bulge is evident. No spinal canal stenosis or neural foraminal stenosis is present. L1-L2: No focal disc herniation or significant disc bulge is evident. No spinal canal stenosis or n eural foraminal stenosis is present L2-L3: No focal disc herniation or significant disc bulge is evident. No spinal canal stenosis or n eural foraminal stenosis is present. Posterior lateral thecal sac compression from left facet hypert rophy is present. No stenosis evident. L3-L4: No focal disc herniation or significant disc bulge is evident. No spinal canal stenosis or n eural foraminal stenosis is present. Facet hypertrophy is present with mild posterior lateral thecal site impression L4-L5: Broad-based disc bulge is moderate anterior thecal sac compression. Facet hypertrophy and liga mentum flavum laxity have posterior lateral thecal sac fashion. Spinal canal stenosis is present. Lef t moderate foraminal stenosis is present. L5-S1: There is loss of disc at this level. Vacuum disc phenomenon is present. No spinal canal stenos is or neural foraminal stenosis present. Facet hypertrophy is present. There is moderate left and sev ere right foraminal stenosis There may be a minimal grade 1 spondylolisthesis of L4 anteriorly on L5. Disc uncovering is present. IMPRESSION: 1. Spinal canal stenosis L4-5 secondary to broad-based disc bulge and facet hypertrophy with ligament um flavum laxity. 2. Lower lumbar spine Foraminal stenosis greatest on the right at L5-S1
--- NOTE | 2023-09-28 14:18 | US ---
EXAMINATION TYPE: US carotid duplex BILAT DATE OF EXAM: 09/28/2023 COMPARISON: NONE CLINICAL INDICATION: Male, 78 years old with history of stroke; weakness TECHNIQUE: Carotid duplex ultrasound examination. Indirect Doppler criteria was utilized. FINDINGS: EXAM MEASUREMENTS: RIGHT: Peak Systolic Velocity (PSV) cm/sec ----- Right CCA: 102.0 ----- Right ICA: 164.0 ----- Right ECA: 109.0 ICA/CCA ratio: 1.6 RIGHT: End Diastole cm/sec ----- Right CCA: 5.7 ----- Right ICA: 23.4 ----- Right ECA: 0.0 LEFT: Peak Systolic Velocity (PSV) cm/sec ----- Left CCA: 122.0 ----- Left ICA: 118.0 ----- Left ECA: 99.3 ICA/CCA ratio: 1.0 LEFT: End Diastole cm/sec ----- Left CCA: 9.1 ----- Left ICA: 20.7 ----- Left ECA: 0.0 VERTEBRALS (direction of flow): Right Vertebral: Antegrade Left Vertebral: Antegrade Rhythm: Normal GRIEVANCE AND APPEALS COORDINATOR NOTES: Mild homogeneous plaque with no significant stenosis seen IMPRESSION: No evidence of hemodynamically significant stenosis. Criteria for Assigning % of Stenosis / Diameter reduction (Estimation based on the indirect measurements of the internal carotid artery velocities (ICA PSV). 1. Normal (no stenosis)=ICA PSV < 125 cm/s: ratio < 2.0: ICA EDV<40 cm/s. 2. Less than 50% stenosis=ICA PSV < 125 cm/s: ratio < 2.0: ICA EDV<40 cm/s. 3. 50 to 69% stenosis=ICA PSV of 125 to 230 cm/s: ration 2.0 ? 4.0: ICA EDV 40-100 cm/s. 4. Greater than 70% stenosis to near occlusion= ICA PSV > 230 cm/s: ratio > 4.0: ICA EDV > 100 cm/s. 5. Near occlusion= ICA PSV velocities may be low or undetectable: variable ratio and ICA EDV. 6. Total occlusion=unable to detect flow.
[2023-09-28] MEDS: ACETAMINOPHEN TAB 325 MG TAB PO PRN (17:47)
[2023-09-28] MEDS: IBUPROFEN 800 MG TAB PO PRN (19:32)
[2023-09-29 10:49] LABS: Basophils # (A) 0.02 X 10*3/uL (0.00-0.10); Basophils % (A) 0.4 %; Eosinophils # (A) 0.03 X 10*3/uL (0.04-0.35); Eosinophils % (A) 0.6 %; HCT 37.6 % (39.6-50.0); HGB 12.5 g/dL (13.0-17.0); Lymphocytes % (A) 26.4 %; MCH 29.9 pg (27.0-32.0); MCHC 33.2 g/dL (32.0-37.0); Mean Platelet Volume 9.8 FL (9.5-12.2); Monocytes # (A) 0.46 X 10*3/uL (0.20-1.00); Monocytes % (A) 8.7 %; NRBC Per 100 WBC 0 X 10*3/uL (0.00-0.01); Neutrophils # (A) 3.35 X 10*3/uL (1.80-7.70); Neutrophils % (A) 63.1 %; Platelet Count 166 X 10*3/uL (140-440); RBC 4.18 X 10*6/uL (4.40-5.60); RDW 13.4 % (11.5-14.5)
[2023-09-29 11:22] LABS: ALT 56 U/L (10-49); AST 86 U/L (14-35); Albumin 3.4 g/dL (3.8-4.9); Albumin/Globulin Ratio 1.36 Ratio (1.60-3.17); Alkaline Phosphatase 67 U/L (41-126); BUN/Creat Ratio 14.62 Ratio (12.00-20.00); Blood Urea Nitrogen 11.7 mg/dL (9.0-27.0); Carbon Dioxide 22.5 mmol/L (21.6-31.8); Chloride 104 mmol/L (96-109); Creatine Kinase 679 U/L (35-257); Globulin 2.5 g/dL (1.6-3.3); Glucose 150 mg/dL (70-110); Magnesium 2.2 mg/dL (1.5-2.4); Sodium 139 mmol/L (135-145); Total Bilirubin 0.5 mg/dL (0.3-1.2); Total Protein 5.9 g/dL (6.2-8.2)
--- NOTE | 2023-09-29 11:43 | P.CNOR ---
History of Present Illness - [facility] Consult date: 09/29/23 Requesting physician: Macey Santiago Consult reason: other (Spinal canal stenosis L4-5, lumbar spine foraminal sten osis L5-S1, falls) History of present illness: Patient is a 78-year-old male who presented to the emergency department [facility] on 09/27/2023 due to increased debility over the past couple days. Per the family, patient was playing golf several days ago over the past couple days had been unable to ambulate has been pretty lethargic. Patient has had several falls over the past couple weeks. Patient was seen this morning at 6 N. with daughter present during counter. Patient states normally he does not use a walker or cane to ambulate. Patient's daughter mentioned she bought him a walker over the past month for him to use it to help around home. Patient states he has had several falls over the past few weeks and notes that if he changes positions and stands up too quickly he gets somewhat lightheaded and dizzy and falls. Patient says he does have low back pain which has not helped in regards to the falling. Patient states he has not had any radiation of pain and mostly it stays in the low back right in the middle. Patient denies any lumbar radiculopathy. Patient denies any previous orthopedic surgeries. Patient says he is fairly independent at home. Patient says he has taken Motrin to help with some of the pain. Patient denies any loss of bowel/bladder control. Patient has had some urinary retention and 800 mL was retained as note d in the ER. Patient denies any previous history of stroke. Patient states he is not on any blood thinners. Patient denies chest pain, fever, shortness breath, nausea, vomiting, change in vision, loss of bladder control. Past Medical History Past Medical History: No Reported History History of Any Multi-Drug Resistant Organisms: None Reported Past Surgical History: No Surgical Hx Reported Past Psychological History: No Psychological Hx Reported Smoking Status: Former smoker Past Alcohol Use History: None Reported Past Drug Use History: None Reported Medications and Allergies Home Medications Medication Instructions Recorded Confirmed Type No Known Home Medications 03/21/21 09/28/23 History Allergies Allergy/AdvReac Type Severity Reaction Status Date / Time No Known Allergies Allergy Verified 09/28/23 09:43 Physical Examination Inspection: Positive for scoliosis of spine during exam. Negative for any open fractures, significant erythema/ecchymosis or open wounds. Sensation: Equal, symmetric, bilaterally intact at the upper and lower extremities on exam Palpation: Mild tenderness to palpation over lower lumbar spine and midline. Nontender to palpation throughout rest of exam Range of motion: Patient has full range of motion throughout bilateral upper extremities and shoulders, elbows and wrists. Patient does have some limited range of motion in bilateral hips and flexion extension secondary to her for low back pain. Patient is able to flex bilateral knees past 110 while resting in bed. Patient Lacks about 5 full extension of the knees bilaterally while re sting in be. Full range of motion in ankle dorsi/plantar flexion. Patient has good range of motion and EHL/FHL bilaterally. Motor: Food Mixer Assembler strength 5/5 bilaterally. All major motor groups 5/5 in bilateral upper extremities. 4/5 in resisted hip flexion/extension bilaterally. 5/5 in all other major motor groups in bilateral lower extremities. Neurovascular: Radial pulses intact, 2+ bilaterally. Cap refill under 3 seconds in digits upper extremities. Special tests: Negative Homans bilaterally. No clonus bilaterally. Positive Liborio bilaterally. Results - Labs Labs: Abnormal Lab Results - Last 24 Hours (Table) 09/27/23 09/28/23 09/28/23 Range/Units 23:56 00:17 14:27 RBC (4.40-5.60) X 10*6/uL Hgb (13.0-17.0) g/dL Hct (39.6-50.0) % Eosinophils # (0.04-0.35) X 10*3/uL Hemoglobin A1c 6.3 H (<=6.0) % Creatine Kinase 1010 H* (55-170) U/L Folate 31.90 H (4.40-31.00) ng/mL 09/29/23 Range/Units 07:24 RBC 4.18 L (4.40-5.60) X 10*6/uL Hgb 12.5 L (13.0-17.0) g/dL Hct 37.6 L (39.6-50.0) % Eosinophils # 0.03 L (0.04-0.35) X 10*3/uL Hemoglobin A1c (<=6.0) % Creatine Kinase (55-170) U/L Folate (4.40-31.00) ng/mL Microbiology - Last 24 Hours (Table) 09/27/23 23:44 Blood Culture Gram Stain - Preliminary Blood Blood Culture - Preliminary Molecular ID 09/27/23 23:59 Blood Culture Gram Stain - Preliminary Blood H & H 09/27/23 09/29/23 Range/Units 23:56 07:24 Hgb 14.8 12.5 L (13.0-17.5) gm/dL Hct 43.8 37.6 L (39.0-53.0) % Coagulation 09/27/23 Range/Units 23:56 INR 1.0 (<1.2) Result Diagrams: 09/29/23 07:24 09/29/23 07:24 - Diagnostic results CT Scan - lumbar: report reviewed, image reviewed (Computed tomography scan of the lumbar spine has been reviewed. There is evidence for some central canal stenosis in the lower lumbar spine as well as neuroforaminal stenosis at L5-S1. Positive for L4 on L5 anterolisthesis.) Assessment and Plan Assessment: 1. Mechanical low back pain; L4-L5 spondylolisthesis; lumbar spondylosis; degenerative disc disease; L5-S1 neuroforaminal stenosis; L4-5 central canal stenosis Plan: 1. Mechanical low back pain; L4-L5 spondylolisthesis; lumbar spondylosis; degenerative disc disease; L5-S1 neuroforaminal stenosis; L4-5 central canal stenosis - Computed tomography scan of the lumbar spine has been reviewed. There is evidence for some central canal stenosis in the lower lumbar spine as well as neuroforaminal stenosis at L5-S1. Positive for L4 on L5 anterolisthesis. Patient did present with positive Liborio on exam. Neurology has ordered MRI of brain and cervical spine. We will await results from MRI of cervical spine before proceeding with any potential orthopedic intervention. At this time we're recommending continued conservative measures with PT/OT daily as well as pain medication. We will continue to follow patient during stay in hospital. 2. Appreciate medical and neuro management 3. Pain management - tylenol 4. DVT prophylaxis recs 5. GI prophylaxis recs 6. PT/OT - weightbearing as tolerated with walker and assistance 7. Encourage incentive spirometer use 8. Appreciate consult Time with Patient: Less than 30
[2023-09-29] MEDS ORDERED: DEXTROSE 50% SYRINGE 50 ML IVP PRN ×2 (12:29)
--- NOTE | 2023-09-29 12:33 | P.PN ---
Subjective Progress Note Date: 09/29/23 09/28/2023Thisharon is a 78-year-old male that comes to the office early. His son was at bedside reports that he went golfing 9 holes 1 week ago. That he had seen him on Friday and that he had a fall at home and it was just not himself. He lives with his daughter primarily. She works regularly and is not there all the time. His son reports other history from the daughter while the patient is rather quiet. The patient indicates that is just not feeling himself. His son reports that he had visited and his father had to urinate quite bad but indicates he was unable to go. He also indicates he is fallen several times this week in the emergency room was found to have significant urinary retention 800+ cc in his bladder. When examining today he was found to have a pulse ox in the 80s on room air. Currently denies any chest pains pressure shortness of breath nausea or vomiting. Vital signs are currently stable however the patient did have a fever of 103.4 early this morning. Labs show essentially normal except for glucose of 196. AST was slightly elevated, CT abdomen pelvis was reviewed. 09/29/2023 neurology workup in progress. Brain CT reported no acute intracranial process. Lumbar spine CT reported spinal canal stenosis L4-5 secondary to broad-based disc bulge and facet hypertrophy with ligamentum flavum laxity, lower lumbar spine foraminal stenosis greatest on the right at L5-S1. Carotid Doppler reported no hemodynamic significant stenosis. Yesterday creatinine kinase elevated at 1010, IV fluids increased, trending down currently 679. Renal function improving. Sodium has normalized. Blood sugars controlled. Hemoglobin A1c 6.3. Tmax 99.3, currently afebrile, normal WBC. Preliminary blood cultures 2/2 reporting gram-positive cocci in clusters. UA negative. maintained on ceftriaxone. Objective - Vital Signs Vital signs: Vital Signs Temp 97.9 F 09/29/23 10:36 Pulse 72 09/29/23 10:36 Resp 18 09/29/23 10:36 BP 155/81 09/29/23 10:36 Pulse Ox 97 09/29/23 10:36 FiO2 Intake & Output 09/28/23 09/29/23 09/29/23 18:59 06:59 18:59 Output Total 500 310 100 Balance -500 -310 -100 Output: Urine 500 310 100 Uretheral (Roldan) 500 100 - Exam GENERAL: Elderly male answering questions appropriately but slowly, alert and oriented x3. HEENT: Atraumatic, normocephalic.Pupils equal round and reactive to light, extraocular movements intact, sclera anicteric, conjunctiva are normal.Moist mucous membranes. NECK: Supple, no JVD. LUNGS: Unlabored, equal air entry, clear to auscultation. HEART: Regular rate and rhythm without murmurs, rubs or gallops.S1S2 Normal ABDOMEN: Soft, nontender, normoactive bowel sounds. No guarding, no rebound. No masses appreciated. EXTREMITIES: Normal range of motion, no pitting or edema. No clubbing or cyanosis. NEUROLOGICAL: Cranial nerves II through XII grossly intact. Strength and sensation grossly intact. PSYCH: Normal mood, normal affect. SKIN: Warm, Dry, normal turgor, no rashes or lesions noted. Microbiology 09/27/23 23:44 Blood Blood Culture Gram Stain - Preliminary 09/27/23 23:44 Blood Blood Culture - Preliminary Molecular ID 09/27/23 23:59 Blood Blood Culture Gram Stain - Preliminary - Labs CBC & Chem 7: 09/29/23 07:24 09/29/23 07:24 Labs: Abnormal Lab Results - Last 24 Hours (Table) 09/27/23 09/28/23 09/28/23 Range/Units 23:56 00:17 14:27 RBC (4.40-5.60) X 10*6/uL Hgb (13.0-17.0) g/dL Hct (39.6-50.0) % Eosinophils # (0.04-0.35) X 10*3/uL Anion Gap (4.00-12.00) mmol/L Glucose (70-110) mg/dL Hemoglobin A1c 6.3 H (<=6.0) % Calcium (8.7-10.3) mg/dL AST (14-35) U/L ALT (10-49) U/L Creatine Kinase 1010 H* (55-170) U/L Total Protein (6.2-8.2) g/dL Albumin (3.8-4.9) g/dL Albumin/Globulin Ratio (1.60-3.17) Ratio Folate 31.90 H (4.40-31.00) ng/mL 09/29/23 09/29/23 Range/Units 07:24 07:24 RBC 4.18 L (4.40-5.60) X 10*6/uL Hgb 12.5 L (13.0-17.0) g/dL Hct 37.6 L (39.6-50.0) % Eosinophils # 0.03 L (0.04-0.35) X 10*3/uL Anion Gap 12.50 H (4.00-12.00) mmol/L Glucose 150 H (70-110) mg/dL Hemoglobin A1c (<=6.0) % Calcium 8.0 L (8.7-10.3) mg/dL AST 86 H (14-35) U/L ALT 56 H (10-49) U/L Creatine Kinase 679 H (55-170) U/L Total Protein 5.9 L (6.2-8.2) g/dL Albumin 3.4 L (3.8-4.9) g/dL Albumin/Globulin Ratio 1.36 L (1.60-3.17) Ratio Folate (4.40-31.00) ng/mL Microbiology - Last 24 Hours (Table) 09/27/23 23:44 Blood Culture Gram Stain - Preliminary Blood Blood Culture - Preliminary Molecular ID 09/27/23 23:59 Blood Culture Gram Stain - Preliminary Blood Assessment and Plan Assessment: Recurrent falls, related to underlying infection, bacteremia with preliminary blood cultures reporting gram-positive cocci in clusters, etiology unclear and dehydration, Acute renal insufficiency, secondary to dehydration, improving Acute rhabdomyolysis secondary to the above, improving with IV fluid hydration Acute metabolic encephalopathy, present on admission secondary to the above, improving Fever Urinary retention, UA negative for UTI. New onset pre diabetes mellitus, hemoglobin A1c 6.3 Plan: Continue on current medication regimen ,monitoring and symptomatic treatment. Creatinine kinase trending down, IV fluids decreased, close monitoring with repeat level ordered for a.m. orthopedics consulted for abnormal lumbar spine CT/falls. Novolog insulin SS initiated. Infectious disease consult in place, recommendations pending. Repeat blood cultures. EEG, echo pending. The impression and plan of care has been dictated as directed. : I performed a history and examination of this patient, discussed the same with the dictator. I agree with the dictator's note ,documented as a scribe. Any additional findings or plans will be noted.
[2023-09-29] MEDS: INSULIN ASPART (NovoLOG) 100 UNIT/ML VIAL SQ SCH (12:39)
[2023-09-29] MEDS: TAMSULOSIN 0.4 MG CAP.ER.24H PO SCH (14:03)
--- NOTE | 2023-09-29 16:10 | CA ---
Transthoracic Echo Report Name: Sánchez Robles Age: 78 Gender: M : 1945 Exam Date: 09/29/2023 13:39 Exam Location: [facility] Ht (in): 73 Wt (lb): 220 Ordering Physician: Félix Sparrow MD Attending/Referring Phys: Senior Animator Natalia Abdi RDCS Procedure CPT: Indications: stroke Cardiac Hx: Technical Quality: Poor Contrast 1: Total Dose (mL): Contrast 2: Total Dose (mL): MEASUREMENTS (Male / Female) Normal Values 2D ECHO LV Diastolic Diameter PLAX 5.7 cm 4.2 - 5.9 / 3.9 - 5.3 cm LV Systolic Diameter PLAX 3.5 cm IVS Diastolic Thickness 0.9 cm 0.6 - 1.0 / 0.6 - 0.9 cm LVPW Diastolic Thickness 1.0 cm 0.6 - 1.0 / 0.6 - 0.9 cm LV Relative Wall Thickness 0.3 RV Internal Dim ED PLAX 3.3 cm LA Systolic Diameter LX 4.0 cm 3.0 - 4.0 / 2.7 - 3.8 cm LV Diastolic Volume MOD BP 99.5 cm??? 67 - 155 / 56 - 104 cm??? LV Systolic Volume MOD BP 51.6 cm??? 22 - 58 / 19 - 49 cm??? LV Ejection Fraction MOD BP 48.1 % >= 55 % LV Cardiac Index MOD BP 1569.6 cm???/min???m??? LV Diastolic Volume MOD 4C 114.4 cm??? LV Systolic Volume MOD 4C 55.0 cm??? LV Ejection Fraction MOD 4C 51.9 % LV Cardiac Index MOD 4C 1946.9 cm???/min???m??? LV Diastolic Length 4C 7.6 cm LV Systolic Length 4C 5.9 cm LV Diastolic Volume MOD 2C 80.4 cm??? LV Systolic Volume MOD 2C 47.0 cm??? LV Ejection Fraction MOD 2C 41.5 % LV Cardiac Index MOD 2C 1095.4 cm???/min???m??? LV Diastolic Length 2C 7.0 cm LV Systolic Length 2C 6.1 cm LA Volume 71.8 cm??? 18 - 58 / 22 - 52 cm??? LA Volume Index 31.4 cm???/m??? 16 - 28 cm???/m??? M-MODE Aortic Root Diameter MM 3.5 cm AV Cusp Separation MM 2.3 cm DOPPLER AV Peak Velocity 123.2 cm/s AV Peak Gradient 6.1 mmHg MV Area PHT 3.7 cm??? Mitral E Point Velocity 73.4 cm/s Mitral A Point Velocity 84.7 cm/s Mitral E to A Ratio 0.9 MV Deceleration Time 206.4 ms FINDINGS Left Ventricle Left ventricular ejection fraction is estimated at 55-60 %. Normal left ventricular ejection fraction. Normal left ventricular wall motion. Left ventricular cavity size normal. Right Ventricle Normal right ventricular size and function. Unable to estimate the right ventricular systolic pressure. Right Atrium Normal right atrial size. Negative agitated saline bubble study for right to left shunt. Left Atrium Mildly increased left atrial volume. No left atrial thrombus or mass present. Mitral Valve Structurally normal mitral valve. No evidence for mitral valve prolapse. No mitral stenosis. Mild mitral regurgitation. Aortic Valve Trileaflet aortic valve. Aortic valve sclerosis. No aortic valve stenosis or regurgitation. Tricuspid Valve Structurally normal tricuspid valve. No tricuspid regurgitation. Pulmonic Valve Structurally normal pulmonic valve. Mild pulmonic regurgitation. Pericardium No pericardial effusion. No pleural effusion. Aorta Normal size aortic root and proximal ascending aorta. CONCLUSIONS Left ventricular ejection fraction is estimated at 55-60 %. No obvious regional wall motion abnormality No significant chamber size abnormality Mild mitral regurgitation. Mild aortic valve sclerosis but no stenosis Previewed by: Dr Flash Ro (Electronically Signed) Final Date: 29 September 2023 16:09
[2023-09-29 17:05] LABS: Glucose,Whole Blood 121 mg/dL (70-110)
--- NOTE | 2023-09-29 18:03 | MR ---
EXAMINATION TYPE: MR lumbar spine wo con DATE OF EXAM: 09/29/2023 3:52 PM CLINICAL INDICATION:Male, 78 years old with history of urinary retention, COMPARISON: 09/28/2023 TECHNIQUE: Multi planar, multi sequence imaging was performed utilizing: T1-weighted, T2-weighted, a nd turbo inversion recovery imaging of the lumbar spine. IV Contrast: cc . (None if empty) FINDINGS: Alignment: The lumbar vertebral bodies have preserved heights with grade 1 anterolisthesis of L4 on L 5. Cord: The conus medullaris and the distal spinal cord appear unremarkable with regards to their signa l intensity and morphology. Bones/Discs: Multilevel degeneration changes with osteophyte formation is space narrowing present. Ch jeromy with superior endplate of L2.. Intervertebral disc signal is maintained. Nonaggressive appearin g lesion within the L2 vertebral body on the left near the pedicle. This is heterogenous T1/T2 signal predominantly higher T2 signal. High FLAIR signal. Additional lesion similar in in S2 vertebral body which is favored represent focal fat versus vertebral body hemangioma. Lesions have a nonaggressive appearance. T12-L1: No evidence of significant spinal canal stenosis or neural foraminal stenosis. L1-L2: No evidence of significant spinal canal stenosis or neural foraminal stenosis. L2-L3: No evidence of significant spinal canal stenosis or neural foraminal stenosis. L3-L4: Disc bulge and facet joint arthropathy result in mild spinal canal and mild to moderate bilate ral neural foraminal stenosis. L4-L5: Disc uncovering from grade 1 anterolisthesis and facet joint arthropathy with mild spinal guerda l stenosis and moderate left and mild right. Neural foraminal stenosis. L5-S1: The disc has a rounded posterior morphology without significant spinal canal stenosis. Facet j oint arthropathy with moderate right with osteophyte impressing upon the exiting nerve. Mild left. Ne ural foraminal stenosis. No significant spinal canal or neural foraminal stenosis in the remainder of the visualized levels. Other findings: None. IMPRESSION: 1. No evidence for cauda equina or significant spinal canal stenosis. No definitive evidence of disc herniation. 2. Mild disc degeneration with associated osteoarthritic changes. No foraminal stenosis worse at L5- S1 with moderate right neural foraminal stenosis. 3. Grade 1 anterolisthesis of L4 and L5.
[2023-09-29 20:21] LABS: Glucose,Whole Blood 122 mg/dL (70-110)
--- NOTE | 2023-09-29 22:52 | EEG ---
ELECTROENCEPHALOGRAM REPORT PREAMBLE: This is a 78-year-old male presenting with confusion, rule out seizure. EEG FINDINGS: This is a 21-channel digital EEG recorded with video component, utilizing 10/20 international system with referential and bipolar montages. Background consists of well developed, well regulated moderate voltage activity in 8 to 9 hertz alpha. Background is posterior dominant and reactive to eye opening and closing. Photic driving response was not seen. Drowsiness was seen with appearance of bilaterally symmetric theta frequency rhythm. Stage 2 sleep was seen with presence of some sleep spindles and vertex waves. Arousal was normal. No focal or generalized epileptiform activity was seen. IMPRESSION: This is a normal EEG during wakefulness, drowsiness, and stage 2 sleep. No definitive focal, lateralized, or epileptiform activity was seen. MMODL / IJN: [id number] /
[2023-09-30 07:00] LABS: Glucose,Whole Blood 116 mg/dL (70-110)
--- NOTE | 2023-09-30 07:56 | P.CONS ---
History of Present Illness - Reason for Consult Consult date: 09/29/23 Fever, unknown source Requesting physician: Rashad Cruz - Chief Complaint Weakness x few days - History of Present Illness Patient is a 78-year-old male with no significant past medical history reported presenting to the hospital 2 days ago for evaluation of weakness and increased debility with symptoms getting worse over the last 2 days apparently the patient was planing of just 3 to 4 days prior to being admitted to the hospital however the day on presentation to hospital he was unable to ambulate has been sleeping throughout the day and was very diaphoretic and sweating with the symptoms the patient has been brought to the hospital on presentation to the hospital patient did have a temperature of 103.4 degrees following right patient was not tachycardic hypotensive or hypoxic and no need for supplemental oxygen he did have a white count of 7.7 creatinine is 1.21 liver enzymes are normal urine is negative influenza RSV COVID testing negative urine drug screen was negative patient did have a chest x-ray no acute findings abdominal pelvis CT bladder contains a Roldan catheter moderate amount of gas with asymmetrical posterior wall thickening could be due to muscle hypertrophy versus cystitis correlate with clinical and lab findings lumbar spine CT spinal canal stenosis L4-5 secondary to board base disc bulge patient did have a blood cultures came back positive prompting this consultation patient currently denies having any headache or URI symptoms patient denies having any chest pain or shortness of breath or cough no nausea no vomiting no abdominal pain no diarrhea Review of Systems Positive point and negatives has been mentioned in the HPI, complete review of systems was performed and all other systems are negative Past Medical History Past Medical History: No Reported History History of Any Multi-Drug Resistant Organisms: None Reported Past Surgical History: No Surgical Hx Reported Past Anesthesia/Blood Transfusion Reactions: No Reported Reaction Past Psychological History: No Psychological Hx Reported Smoking Status: Former smoker Past Alcohol Use History: None Reported Past Drug Use History: None Reported Medications and Allergies Home Medications Medication Instructions Recorded Confirmed Type Acetaminophen Tab [Tylenol] 650 mg PO Q6HR PRN tab 10/01/23 Rx Cephalexin [Keflex] 500 mg PO Q8HR 10 Days #30 cap 10/01/23 Rx Tamsulosin [Flomax] 0.4 mg PO PC-BRKFST #30 cap 10/01/23 Rx Allergies Allergy/AdvReac Type Severity Reaction Status Date / Time No Known Allergies Allergy Verified 09/28/23 09:43 Physical Exam Vitals: Vital Signs Temp Pulse Pulse Resp BP BP Pulse Ox 09/29/23 10:36 97.9 F 72 18 155/81 97 09/29/23 10:07 98 F 70 16 134/74 97 09/29/23 08:24 98.9 F 74 16 135/78 97 09/29/23 04:00 58 L 16 123/68 97 09/29/23 02:00 56 L 110/64 96 09/28/23 23:19 57 L 17 108/58 96 09/28/23 19:34 98.4 F 75 16 117/52 96 09/28/23 16:16 98.8 F 78 16 120/63 98 09/28/23 15:00 99.3 F 09/28/23 12:43 98.6 F 09/28/23 12:05 98.1 F 68 18 125/70 98 Intake and Output 09/28/23 09/29/23 09/29/23 22:59 06:59 14:59 Output Total 500 310 100 Balance -500 -310 -100 Output: Urine 500 310 100 Uretheral (Roldan) 500 100 Other: Weight 99.79 kg GENERAL DESCRIPTION: Elderly male lying in bed, no distress. No tachypnea or accessory muscle of respiration use. HEENT: Shows Pallor , no scleral icterus. Oral mucous membrane is dry. No pharyngeal erythema or thrush NECK: Trachea central, no thyromegaly. LUNGS: Unlabored breathing. Clear to auscultation anteriorly. No wheeze or crackle. HEART: S1, S2, regular rate and rhythm. No loud murmur ABDOMEN: Soft, no tenderness , guarding or rigidity, no organomegaly EXTREMITIES: No edema of feet. SKIN: No rash, no masses palpable. NEUROLOGICAL: The patient is awake, alert, oriented x3, mood and affect normal. Results CBC & Chem 7: 10/01/23 12:39 10/01/23 12:39 Labs: Abnormal Lab Results - Last 24 Hours (Table) 09/27/23 09/28/23 09/28/23 Range/Units 23:56 00:17 14:27 RBC (4.40-5.60) X 10*6/uL Hgb (13.0-17.0) g/dL Hct (39.6-50.0) % Eosinophils # (0.04-0.35) X 10*3/uL Anion Gap (4.00-12.00) mmol/L Glucose (70-110) mg/dL Hemoglobin A1c 6.3 H (<=6.0) % Calcium (8.7-10.3) mg/dL AST (14-35) U/L ALT (10-49) U/L Creatine Kinase 1010 H* (55-170) U/L Total Protein (6.2-8.2) g/dL Albumin (3.8-4.9) g/dL Albumin/Globulin Ratio (1.60-3.17) Ratio Folate 31.90 H (4.40-31.00) ng/mL 09/29/23 09/29/23 Range/Units 07:24 07:24 RBC 4.18 L (4.40-5.60) X 10*6/uL Hgb 12.5 L (13.0-17.0) g/dL Hct 37.6 L (39.6-50.0) % Eosinophils # 0.03 L (0.04-0.35) X 10*3/uL Anion Gap 12.50 H (4.00-12.00) mmol/L Glucose 150 H (70-110) mg/dL Hemoglobin A1c (<=6.0) % Calcium 8.0 L (8.7-10.3) mg/dL AST 86 H (14-35) U/L ALT 56 H (10-49) U/L Creatine Kinase 679 H (55-170) U/L Total Protein 5.9 L (6.2-8.2) g/dL Albumin 3.4 L (3.8-4.9) g/dL Albumin/Globulin Ratio 1.36 L (1.60-3.17) Ratio Folate (4.40-31.00) ng/mL Microbiology - Last 24 Hours (Table) 09/27/23 23:44 Blood Culture Gram Stain - Preliminary Blood Blood Culture - Preliminary Molecular ID 09/27/23 23:59 Blood Culture Gram Stain - Preliminary Blood Assessment and Plan (1) Bacteremia Status: Acute Code(s): R78.81 - BACTEREMIA SNOMED Code(s): 0611752 Plan: 1patient presented to the hospital 2 days ago with a fever symptom has been generalized weakness and debility some lower back pain with a CT suggestive of possible spinal stenosis and now with evidence of a positive blood culture with staph species awaiting the final ID and sensitivity with a source questionably discitis versus endovascular source no evidence of any cellulitis open wound abdominal soft and no evidence of any pneumonia and urine has been negative even though some abnormality suggestive of cystitis was seen on the CT 2blood cultures were repeated and we will check inflammatory markers 3check an echocardiogram. 4adjust antibiotic to cefazolin 2 g every 8 hours. Will follow on a clinical condition and cultures to further adjust medication if needed Thank you for this consultation will follow this patient along with you Time with Patient: Greater than 30
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
[2023-09-30 10:47] LABS: C Reactive Protein 7.3 mg/dL (0.00-0.80)
[2023-09-30 12:04] LABS: Glucose,Whole Blood 125 mg/dL (70-110)
[2023-09-30 12:40] LABS: African American GFR (CKD) >90 (>60 ml/min/1.73 sqM); Anion Gap 5 mmol/L; Blood Urea Nitrogen 8 mg/dL (9-20); Calcium 8.2 mg/dL (8.4-10.2); Carbon Dioxide 25 mmol/L (22-30); Chloride 106 mmol/L (98-107); Glucose 108 mg/dL (74-99); Non-African American GFR(CKD) >90 (>60 ml/min/1.73 sqM); Potassium 3.6 mmol/L (3.5-5.1); Sodium 136 mmol/L (137-145)
[2023-09-30 12:42] LABS: HCT 37.9 % (39.0-53.0); HGB 12.4 gm/dL (13.0-17.5); MCH 29.5 pg (25.0-35.0); MCHC 32.7 g/dL (31.0-37.0); MCV 90.3 fL (80.0-100.0); Mean Platelet Volume 9.7; Platelet Count 204 k/uL (150-450); RDW 13.3 % (11.5-15.5); WBC 5.4 k/uL (3.8-10.6)
--- NOTE | 2023-09-30 13:45 | P.PN ---
Subjective Progress Note Date: 09/30/23 09/28/2023Thisharon is a 78-year-old male that comes to the office early. His son was at bedside reports that he went golfing 9 holes 1 week ago. That he had seen him on Friday and that he had a fall at home and it was just not himself. He lives with his daughter primarily. She works regularly and is not there all the time. His son reports other history from the daughter while the patient is rather quiet. The patient indicates that is just not feeling himself. His son reports that he had visited and his father had to urinate quite bad but indicates he was unable to go. He also indicates he is fallen several times this week in the emergency room was found to have significant urinary retention 800+ cc in his bladder. When examining today he was found to have a pulse ox in the 80s on room air. Currently denies any chest pains pressure shortness of breath nausea or vomiting. Vital signs are currently stable however the patient did have a fever of 103.4 early this morning. Labs show essentially normal except for glucose of 196. AST was slightly elevated, CT abdomen pelvis was reviewed. 09/29/2023 neurology workup in progress. Brain CT reported no acute intracranial process. Lumbar spine CT reported spinal canal stenosis L4-5 secondary to broad-based disc bulge and facet hypertrophy with ligamentum flavum laxity, lower lumbar spine foraminal stenosis greatest on the right at L5-S1. Carotid Doppler reported no hemodynamic significant stenosis. Yesterday creatinine kinase elevated at 1010, IV fluids increased, trending down currently 679. Renal function improving. Sodium has normalized. Blood sugars controlled. Hemoglobin A1c 6.3. Tmax 99.3, currently afebrile, normal WBC. Preliminary blood cultures 2/2 reporting gram-positive cocci in clusters. UA negative. maintained on ceftriaxone. 09/30/2023 antibiotics adjusted to cefazolin as per ID. Preliminary blood cultures reporting gram-positive cocci in clusters. CRP elevated 7.3. Lumbar spine MRI reported no evidence for cauda equina or significant spinal canal stenosis, no definitive evidence of disc herniation, mild disc degeneration with associated osteoarthritic changes, no foraminal stenosis worse at L5-S1 with moderate right neuroforaminal stenosis, grade 1 anterolisthesis of L4 and L5 .EEG reported normal, echo reporting normal LV function, EF 55 to 60%. Maintain on IV fluids at 75 MLS per hour, Ck continues trending down, currently 373. Renal function stable. Blood sugars controlled. Objective - Vital Signs Vital signs: Vital Signs Temp 98.4 F 09/30/23 07:01 Pulse 79 09/30/23 07:01 Resp 16 09/30/23 07:01 BP 157/82 09/30/23 07:01 Pulse Ox 96 09/30/23 07:01 FiO2 Intake & Output 09/29/23 09/30/23 09/30/23 18:59 06:59 18:59 Intake Total 225 Output Total 950 2100 900 Balance -950 1875 -900 Weight 99.79 kg Intake: Intake, IV Titration 225 Amount Sodium Chloride 0.9% 1, 225 000 ml @ 75 mls/hr IV . [id number] [facility] Rx#:[id number] Output: Urine 950 2100 900 Uretheral (Roldan) 100 Other: Voiding Method Indwelling Catheter Indwelling Catheter Indwelling Catheter # Bowel Movements 1 0 1 - Exam GENERAL: alert and oriented x3, HEENT: Atraumatic, normocephalic.Pupils equal round and reactive to light, conjunctiva are normal.Moist mucous membranes. NECK: Supple, no JVD. LUNGS: Unlabored, equal air entry, clear to auscultation. HEART: Regular rate and rhythm without murmurs, rubs or gallops.S1S2 Normal ABDOMEN: Soft, nontender, normoactive bowel sounds. No guarding, no rebound.+BS EXTREMITIES: Normal range of motion, no pitting or edema. No clubbing or cyanosis. NEUROLOGICAL: Cranial nerves II through XII grossly intact. Strength and sensation grossly intact. PSYCH: Normal mood, normal affect. SKIN: Warm, Dry, normal turgor, no rashes or lesions noted. - Labs CBC & Chem 7: 09/30/23 05:25 09/30/23 05:25 Labs: Abnormal Lab Results - Last 24 Hours (Table) 09/29/23 09/29/23 09/30/23 Range/Units 17:04 20:13 05:25 RBC (4.30-5.90) m/uL Hgb (13.0-17.5) gm/dL Hct (39.0-53.0) % ESR (0-20) mm/Hr Sodium (137-145) mmol/L BUN (9-20) mg/dL Creatinine (0.66-1.25) mg/dL Glucose (74-99) mg/dL POC Glucose (mg/dL) 121 H 122 H (70-110) mg/dL Calcium (8.4-10.2) mg/dL Creatine Kinase 373 H (35-257) U/L C-Reactive Protein 7.30 H (0.00-0.80) mg/dL 09/30/23 09/30/23 09/30/23 Range/Units 05:25 05:25 05:25 RBC 4.20 L (4.30-5.90) m/uL Hgb 12.4 L (13.0-17.5) gm/dL Hct 37.9 L (39.0-53.0) % ESR 70 H (0-20) mm/Hr Sodium 136 L (137-145) mmol/L BUN 8 L (9-20) mg/dL Creatinine 0.63 L (0.66-1.25) mg/dL Glucose 108 H (74-99) mg/dL POC Glucose (mg/dL) (70-110) mg/dL Calcium 8.2 L (8.4-10.2) mg/dL Creatine Kinase (35-257) U/L C-Reactive Protein (0.00-0.80) mg/dL 09/30/23 09/30/23 Range/Units 06:59 12:02 RBC (4.30-5.90) m/uL Hgb (13.0-17.5) gm/dL Hct (39.0-53.0) % ESR (0-20) mm/Hr Sodium (137-145) mmol/L BUN (9-20) mg/dL Creatinine (0.66-1.25) mg/dL Glucose (74-99) mg/dL POC Glucose (mg/dL) 116 H 125 H (70-110) mg/dL Calcium (8.4-10.2) mg/dL Creatine Kinase (35-257) U/L C-Reactive Protein (0.00-0.80) mg/dL Microbiology - Last 24 Hours (Table) 09/27/23 23:59 Blood Culture Gram Stain - Preliminary Blood Blood Culture - Preliminary Staphylococcus epidermidis Staphylococcus capitis 09/27/23 23:44 Blood Culture Gram Stain - Preliminary Blood Blood Culture - Preliminary Staphylococcus epidermidis Staphylococcus hominis Molecular ID Assessment and Plan Assessment: Recurrent falls, related to underlying infection, bacteremia with preliminary blood cultures reporting gram-positive cocci in clusters, etiology unclear and dehydration. Spinal stenosis at L4-L5, reported per radiology studies, orthopedic surgery following Acute renal insufficiency, secondary to dehydration, resolved Acute rhabdomyolysis secondary to the above, improving with IV fluid hydration Acute metabolic encephalopathy, present on admission secondary to the above, improving Urinary retention, UA negative for UTI. New onset pre diabetes mellitus, hemoglobin A1c 6.3 Plan: Continue on current medication regimen ,monitoring and symptomatic treatment. IV antibiotics as per ID, cultures finalizing. Lumbar spine MRI results noted, further recommendations per orthopedic surgery pending. Brain/cervical MRI ordered. The impression and plan of care has been dictated as directed. : I performed a history and examination of this patient, discussed the same with the dictator. I agree with the dictator's note ,documented as a scribe. Any additional findings or plans will be noted.
[2023-09-30 17:07] LABS: Glucose,Whole Blood 160 mg/dL (70-110)
--- NOTE | 2023-09-30 17:10 | P.PN ---
Subjective Progress Note Date: 09/30/23 Principal diagnosis: Reason for follow-up is positive blood culture Patient is a 78-year-old male with no significant past medical history reported presenting to the hospital for evaluation of weakness and increased debility with symptoms getting worse over the last 2 days before presentation to the hospital patient did have a positive blood culture with staph prompting this consultation. On today's evaluation that is 09/30/2023, patient has been afebrile, patient is breathing comfortably and is currently on room air, patient denies having any significant cough no chest pain shortness of breath, patient denies nausea vomiting or diarrhea and no abdominal pain, patient mention feeling better wants to go home. Patient white count is 5.4, creatinine 0.63 blood culture with staph epi and Staph capitis along with Staph hominis Objective - Vital Signs Vital signs: Vital Signs Temp 98.4 F 09/30/23 07:01 Pulse 79 09/30/23 07:01 Resp 16 09/30/23 07:01 BP 157/82 09/30/23 07:01 Pulse Ox 96 09/30/23 07:01 FiO2 Intake & Output 09/29/23 09/30/23 09/30/23 18:59 06:59 18:59 Intake Total 225 Output Total 950 2100 900 Balance -950 -1875 -900 Weight 99.79 kg Intake: Intake, IV Titration 225 Amount Sodium Chloride 0.9% 1, 225 000 ml @ 75 mls/hr IV . [id number] [facility] Rx#:[id number] Output: Urine 950 2100 900 Uretheral (Roldan) 100 Other: Voiding Method Indwelling Catheter Indwelling Catheter Indwelling Catheter # Bowel Movements 1 0 1 - Exam GENERAL DESCRIPTION: An elderly male lying in bed in no distress RESPIRATORY SYSTEM: Unlabored breathing , decreased breath sounds at bases HEART: S1 S2 regular rate and rhythm , ABDOMEN: Soft , no tenderness EXTREMITIES: No edema feet - Labs CBC & Chem 7: 09/30/23 05:25 09/30/23 05:25 Labs: Abnormal Lab Results - Last 24 Hours (Table) 09/29/23 09/29/23 09/30/23 Range/Units 17:04 20:13 05:25 ESR (0-20) mm/Hr POC Glucose (mg/dL) 121 H 122 H (70-110) mg/dL Creatine Kinase 373 H (35-257) U/L C-Reactive Protein 7.30 H (0.00-0.80) mg/dL 09/30/23 09/30/23 Range/Units 05:25 06:59 ESR 70 H (0-20) mm/Hr POC Glucose (mg/dL) 116 H (70-110) mg/dL Creatine Kinase (35-257) U/L C-Reactive Protein (0.00-0.80) mg/dL Microbiology - Last 24 Hours (Table) 09/27/23 23:59 Blood Culture Gram Stain - Preliminary Blood Blood Culture - Preliminary Staphylococcus epidermidis Staphylococcus capitis 09/27/23 23:44 Blood Culture Gram Stain - Preliminary Blood Blood Culture - Preliminary Staphylococcus epidermidis Staphylococcus hominis Molecular ID Assessment and Plan (1) Bacteremia Current Visit: Yes Status: Acute Code(s): R78.81 - BACTEREMIA SNOMED Code(s): 3969975 Plan: 1patient presented to the hospital with symptoms of weakness and debility he did have a fever admission that has subsequently resolved did have a positive blood culture which is now growing 3 different pathogen mostly skin flaco and likely representing contamination patient did have MRI of the lumbar spine did not show any evidence of discitis or osteomyelitis echocardiogram is negative for any vegetation and the patient do not have any cellulitis or joint swelling currently on cefazolin waiting for repeat blood culture to be finalized however if negative antibiotic can be safely discontinued Thank you for this consultation will follow this patient along with you Time with Patient: Less than 30
--- NOTE | 2023-09-30 20:07 | MR ---
EXAMINATION TYPE: MR brain/cspine wo/w DATE OF EXAM: 09/30/2023 1:41 PM CLINICAL INDICATION:Male, 78 years old with history of confusion and recurrent falls; PHH, Confusion, recurrent falls COMPARISON: 09/28/2023. TECHNIQUE: Multi planar, multi sequence imaging was performed through the brain including: T1, T2, Inversion rec overy, Diffusion weighted imaging, and gradient echo imaging. No gadolinium was given. Multi planar, multi sequence imaging was performed utilizing: T1-weighted, T2-weighted, and turbo inv ersion recovery imaging of the cervical spine. IV Contrast: 10 cc Gadavist FINDINGS: Mild cerebral atrophy with proportional dilation of ventricular system. Scattered foci of of high T 2 signal intensity are seen within the periventricular white matter. Midline structures show no abnor mality. Diffusion-weighted imaging shows no evidence of restricted diffusion. The susceptibility weig hted images do not reveal any evidence for micro-hemorrhage. Mild dolichoectasia of the basilar arter y. The bone marrow signal is within normal limits. Paranasal sinuses and mastoid air cells: No significant paranasal sinus disease. Visualized orbits: Bilateral aphakia Alignment: The cervical vertebral bodies have preserved heights. Alignment is within normal limits gi soren patient positioning. Bones: Scattered Modic endplate changes with osteophytes and disc space narrowing. Multilevel degener ative disc disease is noted and most pronounced at the C5-C7 vertebral levels. No abnormal postcontra st enhancement. Cord: The spinal cord is unremarkable with regards to their signal intensity and morphology. No abnor mal postcontrast enhancement. Discs: Multilevel disc desiccation is present. C2-C3: No significant disc pathology. The spinal canal is patent. No neural foraminal stenosis. C3-C4: No significant disc pathology. The spinal canal is patent. Bilateral facet and uncovertebral joint arthropathy are present with mild bilateral neural foraminal stenosis. C4-C5: No significant disc pathology. The spinal canal is patent. Bilateral facet and uncovertebral joint arthropathy are present with moderate mild left neural foraminal stenosis. C5-C6: No significant disc pathology. The spinal canal is patent. Bilateral facet and uncovertebral joint arthropathy are present with moderate to severe right and moderate left neural foraminal stenos is. C6-C7: No significant disc pathology. The spinal canal is patent. No neural foraminal stenosis. C7-T1: No significant disc pathology. The spinal canal is patent. No neural foraminal stenosis. Other: None. IMPRESSION: 1. No evidence of intracranial mass or acute/subacute infarct. No abnormal postcontrast enhancement. 2. [id number] generalized atrophy of the brain. 3. Minimal Nonspecific white matter changes, likely secondary to small vessel ischemic disease. 4. No evidence for disc herniation or significant spinal canal stenosis. 5. Multilevel disc degeneration with associated osteoarthritic changes.
[2023-09-30 20:11] LABS: Glucose,Whole Blood 166 mg/dL (70-110)
[2023-10-01 07:20] LABS: Glucose,Whole Blood 134 mg/dL (70-110)
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
--- NOTE | 2023-10-01 11:08 | P.PN ---
Subjective Progress Note Date: 10/01/23 Principal diagnosis: Mechanical low back pain; L4-L5 spondylolisthesis; lumbar spondylosis; degenerative disc disease; L5-S1 neuroforaminal stenosis; L4-5 central canal stenosis Patient was seen at bedside this morning lying in semirecumbent position with Roldan in place and daughter present during encounter. Patient says he feels like he has much more energy this morning. patient did have MRI cervical spine was performed yesterday which does show C5-C6 neuroforaminal stenosis. Patient denies chest pain, fever, shortness of breath, nausea, vomiting, change in vision, loss of bowel control. Objective - Vital Signs Vital signs: Vital Signs Temp 97.9 F 10/01/23 07:10 Pulse 70 10/01/23 07:10 Resp 16 10/01/23 07:10 BP 171/87 10/01/23 07:10 Pulse Ox 94 L 10/01/23 07:10 FiO2 Intake & Output 09/30/23 10/01/23 10/01/23 18:59 06:59 18:59 Output Total 1500 1000 Balance -1500 -1000 Output: Urine 1500 1000 Other: Voiding Method Indwelling Catheter Indwelling Catheter # Bowel Movements 1 0 - Exam Inspection: Positive for scoliosis of spine during exam. Negative for any open fractures, significant erythema/ecchymosis or open wounds. Sensation: Equal, symmetric, bilaterally intact at the upper and lower extremities on exam Palpation: Mild tenderness to palpation over lower lumbar spine and midline. Nontender to palpation throughout rest of exam Range of motion: Patient has full range of motion throughout bilateral upper extremities and shoulders, elbows and wrists. Patient does have some limited range of motion in bilateral hips and flexion extension secondary to her for low back pain. Patient is able to flex bilateral knees past 110 while resting in bed. Patient Lacks about 5 full extension of the knees bilaterally while resting in be. Full range of motion in ankle dorsi/plantar flexion. Patient has good range of motion and EHL/FHL bilaterally. Motor: Foot Doctor strength 5/5 bilaterally. All major motor groups 5/5 in bilateral upper extremities. 4/5 in resisted hip flexion/extension bilaterally. 5/5 in all other major motor groups in bilateral lower extremities. Neurovascular: Radial pulses intact, 2+ bilaterally. Cap refill under 3 seconds in digits upper extremities. Special tests: Negative Homans bilaterally. No clonus bilaterally. Positive Liborio bilaterally. - Labs CBC & Chem 7: 09/30/23 05:25 09/30/23 05:25 Labs: Abnormal Lab Results - Last 24 Hours (Table) 09/30/23 09/30/23 09/30/23 Range/Units 05:25 05:25 05:25 RBC 4.20 L (4.30-5.90) m/uL Hgb 12.4 L (13.0-17.5) gm/dL Hct 37.9 L (39.0-53.0) % Sodium 136 L (137-145) mmol/L BUN 8 L (9-20) mg/dL Creatinine 0.63 L (0.66-1.25) mg/dL Glucose 108 H (74-99) mg/dL POC Glucose (mg/dL) (70-110) mg/dL Calcium 8.2 L (8.4-10.2) mg/dL Creatine Kinase 373 H (35-257) U/L C-Reactive Protein 7.30 H (0.00-0.80) mg/dL 09/30/23 09/30/23 09/30/23 Range/Units 12:02 17:06 20:09 RBC (4.30-5.90) m/uL Hgb (13.0-17.5) gm/dL Hct (39.0-53.0) % Sodium (137-145) mmol/L BUN (9-20) mg/dL Creatinine (0.66-1.25) mg/dL Glucose (74-99) mg/dL POC Glucose (mg/dL) 125 H 160 H 166 H (70-110) mg/dL Calcium (8.4-10.2) mg/dL Creatine Kinase (35-257) U/L C-Reactive Protein (0.00-0.80) mg/dL 10/01/23 Range/Units 07:03 RBC (4.30-5.90) m/uL Hgb (13.0-17.5) gm/dL Hct (39.0-53.0) % Sodium (137-145) mmol/L BUN (9-20) mg/dL Creatinine (0.66-1.25) mg/dL Glucose (74-99) mg/dL POC Glucose (mg/dL) 134 H (70-110) mg/dL Calcium (8.4-10.2) mg/dL Creatine Kinase (35-257) U/L C-Reactive Protein (0.00-0.80) mg/dL Microbiology - Last 24 Hours (Table) 09/27/23 23:59 Blood Culture Gram Stain - Preliminary Blood Blood Culture - Preliminary Staphylococcus epidermidis Staphylococcus capitis 09/27/23 23:44 Blood Culture Gram Stain - Preliminary Blood Blood Culture - Preliminary Staphylococcus epidermidis Staphylococcus hominis Molecular ID Assessment and Plan Assessment: 1. Mechanical low back pain; L4-L5 spondylolisthesis; lumbar spondylosis; degenerative disc disease; L5-S1 neuroforaminal stenosis; L4-5 central canal stenosis Plan: 1. Mechanical low back pain; L4-L5 spondylolisthesis; lumbar spondylosis; degenerative disc disease; L5-S1 neuroforaminal stenosis; L4-5 central canal stenosis; C5-C6 neuroforaminal stenosis - computed tomography scan and MRI of the lumbar spine has been reviewed. There is evidence for some central canal stenosis in the lower lumbar spine as well as neuroforaminal stenosis at L5-S1. Positive for L4 on L5 anterolisthesis. Cervical spine MRI is positive for C5-C6 left and right-sided neuroforaminal stenosis. Some mild neuroforaminal stenosis at C4-C5. Patient did present with positive Liborio on exam. At this time we're recommending continued conservative measures with PT/OT daily as well as pain medication. We do recommend patient to follow-up in the outpatient setting with Dr. Donnelly for continued evaluation. Patient is stable from orthopedic standpoint for discharge. Orthopedics will be signing off at this time. Please do not hesitate to contact us for any further questions. 2. Appreciate medical and neuro management 3. Pain management - tylenol 4. DVT prophylaxis recs 5. GI prophylaxis recs 6. PT/OT - weightbearing as tolerated with walker and assistance 7. Encourage incentive spirometer use Time with Patient: Less than 30
[2023-10-01 12:41] LABS: Glucose,Whole Blood 104 mg/dL (70-110)
[2023-10-01 13:19] LABS: African American GFR (CKD) >90 (>60 ml/min/1.73 sqM); Anion Gap 8 mmol/L; Blood Urea Nitrogen 8 mg/dL (9-20); Calcium 8.3 mg/dL (8.4-10.2); Carbon Dioxide 22 mmol/L (22-30); Chloride 108 mmol/L (98-107); Glucose 105 mg/dL (74-99); Non-African American GFR(CKD) >90 (>60 ml/min/1.73 sqM); Sodium 138 mmol/L (137-145)
[2023-10-01 13:20] LABS: Potassium 4.2 mmol/L (3.5-5.1)
--- NOTE | 2023-10-01 14:00 | P.PN ---
Subjective Progress Note Date: 10/01/23 09/28/2023Thisharon is a 78-year-old male that comes to the office early. His son was at bedside reports that he went golfing 9 holes 1 week ago. That he had seen him on Friday and that he had a fall at home and it was just not himself. He lives with his daughter primarily. She works regularly and is not there all the time. His son reports other history from the daughter while the patient is rather quiet. The patient indicates that is just not feeling himself. His son reports that he had visited and his father had to urinate quite bad but indicates he was unable to go. He also indicates he is fallen several times this week in the emergency room was found to have significant urinary retention 800+ cc in his bladder. When examining today he was found to have a pulse ox in the 80s on room air. Currently denies any chest pains pressure shortness of breath nausea or vomiting. Vital signs are currently stable however the patient did have a fever of 103.4 early this morning. Labs show essentially normal except for glucose of 196. AST was slightly elevated, CT abdomen pelvis was reviewed. 09/29/2023 neurology workup in progress. Brain CT reported no acute intracranial process. Lumbar spine CT reported spinal canal stenosis L4-5 secondary to broad-based disc bulge and facet hypertrophy with ligamentum flavum laxity, lower lumbar spine foraminal stenosis greatest on the right at L5-S1. Carotid Doppler reported no hemodynamic significant stenosis. Yesterday creatinine kinase elevated at 1010, IV fluids increased, trending down currently 679. Renal function improving. Sodium has normalized. Blood sugars controlled. Hemoglobin A1c 6.3. Tmax 99.3, currently afebrile, normal WBC. Preliminary blood cultures 2/2 reporting gram-positive cocci in clusters. UA negative. maintained on ceftriaxone. 09/30/2023 antibiotics adjusted to cefazolin as per ID. Preliminary blood cultures reporting gram-positive cocci in clusters. CRP elevated 7.3. Lumbar spine MRI reported no evidence for cauda equina or significant spinal canal stenosis, no definitive evidence of disc herniation, mild disc degeneration with associated osteoarthritic changes, no foraminal stenosis worse at L5-S1 with moderate right neuroforaminal stenosis, grade 1 anterolisthesis of L4 and L5 .EEG reported normal, echo reporting normal LV function, EF 55 to 60%. Maintain on IV fluids at 75 MLS per hour, Ck continues trending down, currently 373. Renal function stable. Blood sugars controlled. 10/01/2023 Preliminary blood cultures reporting staph epi,Staph capitis and Staph hominis. Repeat blood culture in progress. maintained on cefazolin labs pending. Afebrile. Denies chest pain, palpitations or shortness of breath. Maintaining O2 sats in the 90s on room air. Denies headache. Ambulated with walker, tolerated exertion well. Denies lightheadedness, dizziness or focal deficits. MRI of brain reported no evidence of intracranial mass or acute/subacute infarct. No abnormal postcontrast enhancement. Mild to moderate generalized atrophy of the brain. Minimal nonspecific white matter changes, likely secondary to small vessel ischemic disease. No evidence for disc herniation or significant spinal canal stenosis. Multilevel disc degeneration with associated osteoarthritic changes. Patient does have C5-C6 neuroforaminal stenosis as per orthopedic spine's review of C-spine MRI. Objective - Vital Signs Vital signs: Vital Signs Temp 97.9 F 10/01/23 07:10 Pulse 70 10/01/23 07:10 Resp 16 10/01/23 07:10 BP 171/87 10/01/23 07:10 Pulse Ox 94 L 10/01/23 07:10 FiO2 Intake & Output 09/30/23 10/01/23 10/01/23 18:59 06:59 18:59 Output Total 1500 1000 Balance -1500 -1000 Output: Urine 1500 1000 Other: Voiding Method Indwelling Catheter Indwelling Catheter Indwelling Catheter # Bowel Movements 1 0 - Exam GENERAL: alert and oriented x3, HEENT: Atraumatic, normocephalic.Pupils equal, conjunctiva normal.Moist mucous membranes. NECK: Supple, no JVD. LUNGS: Unlabored, equal air entry, clear to auscultation. HEART: Regular rate and rhythm without murmurs, rubs or gallops.S1S2 Normal ABDOMEN: Soft, nontender, normoactive bowel sounds. No guarding, no rebound.+BS EXTREMITIES: Normal range of motion, no pitting or edema. No clubbing or cyanosis. NEUROLOGICAL: Cranial nerves II through XII grossly intact. Strength and sensation grossly intact. PSYCH: Normal mood, normal affect. SKIN: Warm, Dry, normal turgor, no rashes or lesions noted. - Labs CBC & Chem 7: 09/30/23 05:25 10/01/23 12:39 Labs: Abnormal Lab Results - Last 24 Hours (Table) 09/30/23 09/30/23 09/30/23 Range/Units 05:25 05:25 05:25 RBC 4.20 L (4.30-5.90) m/uL Hgb 12.4 L (13.0-17.5) gm/dL Hct 37.9 L (39.0-53.0) % Sodium 136 L (137-145) mmol/L BUN 8 L (9-20) mg/dL Creatinine 0.63 L (0.66-1.25) mg/dL Glucose 108 H (74-99) mg/dL POC Glucose (mg/dL) (70-110) mg/dL Calcium 8.2 L (8.4-10.2) mg/dL Creatine Kinase 373 H (35-257) U/L C-Reactive Protein 7.30 H (0.00-0.80) mg/dL 09/30/23 09/30/23 09/30/23 Range/Units 12:02 17:06 20:09 RBC (4.30-5.90) m/uL Hgb (13.0-17.5) gm/dL Hct (39.0-53.0) % Sodium (137-145) mmol/L BUN (9-20) mg/dL Creatinine (0.66-1.25) mg/dL Glucose (74-99) mg/dL POC Glucose (mg/dL) 125 H 160 H 166 H (70-110) mg/dL Calcium (8.4-10.2) mg/dL Creatine Kinase (35-257) U/L C-Reactive Protein (0.00-0.80) mg/dL 10/01/23 Range/Units 07:03 RBC (4.30-5.90) m/uL Hgb (13.0-17.5) gm/dL Hct (39.0-53.0) % Sodium (137-145) mmol/L BUN (9-20) mg/dL Creatinine (0.66-1.25) mg/dL Glucose (74-99) mg/dL POC Glucose (mg/dL) 134 H (70-110) mg/dL Calcium (8.4-10.2) mg/dL Creatine Kinase (35-257) U/L C-Reactive Protein (0.00-0.80) mg/dL Microbiology - Last 24 Hours (Table) 09/27/23 23:59 Blood Culture Gram Stain - Preliminary Blood Blood Culture - Preliminary Staphylococcus epidermidis Staphylococcus capitis 09/27/23 23:44 Blood Culture Gram Stain - Preliminary Blood Blood Culture - Preliminary Staphylococcus epidermidis Staphylococcus hominis Molecular ID Assessment and Plan Assessment: Recurrent falls, related to dehydration and underlying infection, bacteremia with preliminary blood cultures reporting staph epi,Staph capitis and Staph hominis. Repeat blood culture in progress. Spinal stenosis at L4-L5, reported per radiology studies; orthopedic surgery reporting L4-L5 spondylolisthesis, lumbar spondylosis, degenerative disc disease, L5-S1 neuroforaminal stenosis, L4-5 central canal stenosis as per their review/evaluation and recommending conservative management. Dehydration Acute renal insufficiency, secondary to dehydration, resolved Acute rhabdomyolysis secondary to the above, improving with IV fluid hydration Acute metabolic encephalopathy, present on admission secondary to the above, improving Urinary retention, UA negative for UTI. New onset pre diabetes mellitus, hemoglobin A1c 6.3 Plan: Continue on current medication regimen ,monitoring and symptomatic maria teresa atment. PT recommendations noted .patient and family requesting home DC .discharge planning in progress pending finalized repeat culture, IV antibiotic recommendations and clearance per ID. PT OT. Pain currently managed with Tylenol. The impression and plan of care has been dictated as directed. : I performed a history and examination of this patient, discussed the same with the dictator. I agree with the dictator's note ,documented as a scribe. Any additional findings or plans will be noted.
[2023-10-01 16:16] LABS: HCT 38.4 % (39.6-50.0); HGB 12.6 g/dL (13.0-17.0); MCH 29.1 pg (27.0-32.0); MCHC 32.8 g/dL (32.0-37.0); MCV 88.7 FL (80.0-97.0); Mean Platelet Volume 11.2 FL (9.5-12.2); NRBC Per 100 WBC 0 X 10*3/uL (0.00-0.01); Platelet Count 182 X 10*3/uL (140-440); RBC 4.33 X 10*6/uL (4.40-5.60); RDW 12.9 % (11.5-14.5)
[2023-10-01] MEDS: PANTOPRAZOLE 40 MG TABLET PO SCH (17:04)
[2023-10-01 17:15] LABS: Glucose,Whole Blood 125 mg/dL (70-110)
[2023-10-01 20:01] LABS: Glucose,Whole Blood 151 mg/dL (70-110)
[2023-10-02 07:17] LABS: Glucose,Whole Blood 126 mg/dL (70-110)
--- NOTE | 2023-10-02 07:28 | P.PN ---
Subjective Progress Note Date: 10/01/23 Principal diagnosis: Reason for follow-up is positive blood culture Patient is a 78-year-old male with no significant past medical history reported presenting to the hospital for evaluation of weakness and increased debility with symptoms getting worse over the last 2 days before presentation to the hospital patient did have a positive blood culture with staph prompting this consultation. On today's evaluation that is 10/01/2023, Patient is afebrile this morning and denies any chills, patient mention breathing comfortably and is currently on room air, patient denies any chest pain occasional cough patient denies any abdominal pain no diarrhea no nausea no vomiting, patient mention feeling better wanted to go home. Patient white count is 6.80, creatinine 0.57 blood culture repeat has been negative Objective - Vital Signs Vital signs: Vital Signs Temp 97.9 F 10/01/23 07:10 Pulse 70 10/01/23 07:10 Resp 16 10/01/23 07:10 BP 171/87 10/01/23 07:10 Pulse Ox 94 L 10/01/23 07:10 FiO2 Intake & Output 09/30/23 10/01/23 10/01/23 18:59 06:59 18:59 Output Total 1500 1000 Balance -1500 -1000 Output: Urine 1500 1000 Other: Voiding Method Indwelling Catheter Indwelling Catheter Indwelling Catheter # Bowel Movements 1 0 - Exam GENERAL DESCRIPTION: An elderly male lying in bed in no distress RESPIRATORY SYSTEM: Unlabored breathing , decreased breath sounds at bases HEART: S1 S2 regular rate and rhythm , ABDOMEN: Soft , no tenderness EXTREMITIES: No edema feet - Labs CBC & Chem 7: 10/01/23 12:39 10/01/23 12:39 Labs: Abnormal Lab Results - Last 24 Hours (Table) 09/30/23 09/30/23 09/30/23 Range/Units 05:25 05:25 12:02 RBC 4.20 L (4.30-5.90) m/uL Hgb 12.4 L (13.0-17.5) gm/dL Hct 37.9 L (39.0-53.0) % Sodium 136 L (137-145) mmol/L BUN 8 L (9-20) mg/dL Creatinine 0.63 L (0.66-1.25) mg/dL Glucose 108 H (74-99) mg/dL POC Glucose (mg/dL) 125 H (70-110) mg/dL Calcium 8.2 L (8.4-10.2) mg/dL 09/30/23 09/30/23 10/01/23 Range/Units 17:06 20:09 07:03 RBC (4.30-5.90) m/uL Hgb (13.0-17.5) gm/dL Hct (39.0-53.0) % Sodium (137-145) mmol/L BUN (9-20) mg/dL Creatinine (0.66-1.25) mg/dL Glucose (74-99) mg/dL POC Glucose (mg/dL) 160 H 166 H 134 H (70-110) mg/dL Calcium (8.4-10.2) mg/dL Microbiology - Last 24 Hours (Table) 09/27/23 23:59 Blood Culture Gram Stain - Preliminary Blood Blood Culture - Preliminary Staphylococcus epidermidis Staphylococcus capitis 09/27/23 23:44 Blood Culture Gram Stain - Preliminary Blood Blood Culture - Preliminary Staphylococcus epidermidis Staphylococcus hominis Molecular ID Assessment and Plan (1) Bacteremia Current Visit: Yes Status: Acute Code(s): R78.81 - BACTEREMIA SNOMED Code(s): 9663224 Plan: 1patient presented to the hospital with symptoms of weakness and debility he did have a fever admission that has subsequently resolved did have a positive blood culture which is now growing 3 different pathogen mostly skin flaoc and likely representing contamination patient did have MRI of the lumbar spine did not show any evidence of discitis or osteomyelitis echocardiogram is negative for any vegetation and the patient do not have any cellulitis or joint swelling 2-patient repeat blood culture has been negative we will consider a short course of oral Keflex on discharge prescription has been sent to the pharmacy you also recommend obtaining a set of blood culture a week after completion of his oral antibiotic therapy and if negative no further workup will be recommended Family bedside questions were answered Dictation was produced using [employer] dictation software. please excuse any grammatical, word or spelling errors. Time with Patient: Less than 30
[2023-10-02 11:44] VITALS: PULSE 67
[2023-10-02 13:00] VITALS: BP 167/84; RESP 18; TEMP 98.8
--- NOTE | 2023-10-02 15:53 | P.PN ---
Subjective Progress Note Date: 10/02/23 Principal diagnosis: Reason for follow-up is positive blood culture Patient is a 78-year-old male with no significant past medical history reported presenting to the hospital for evaluation of weakness and increased debility with symptoms getting worse over the last 2 days before presentation to the hospital patient did have a positive blood culture with staph prompting this consultation. On today's evaluation that is 10/02/2023,the patient denies any fever or any chills, patient is breathing comfortably on room air, the patient denies chest pain shortness of breath and no significant cough, patient denies abdominal pain, no nausea vomiting or diarrhea. Patient mention feeling better currently waiting for discharge. No new labs has been obtained today blood culture repeat has been negative Objective - Vital Signs Vital signs: Vital Signs Temp 98.1 F 10/02/23 07:52 Pulse 67 10/02/23 11:43 Resp 16 10/02/23 07:52 BP 161/80 10/02/23 11:43 Pulse Ox 93 L 10/02/23 07:52 FiO2 Intake & Output 10/01/23 10/02/23 10/02/23 18:59 06:59 18:59 Intake Total 120 830 Output Total 3450 317 7233 Balance -1520 -50 -1000 Intake: Oral 120 830 Output: Urine 2123 661 [id number] Uretheral (Roldan) 5533 572 3338 Post Void Residual 100 Other: Voiding Method Indwelling Catheter Urinal Urinal - Exam GENERAL DESCRIPTION: An elderly male lying in bed in no distress RESPIRATORY SYSTEM: Unlabored breathing , decreased breath sounds at bases HEART: S1 S2 regular rate and rhythm , ABDOMEN: Soft , no tenderness EXTREMITIES: No edema feet - Labs CBC & Chem 7: 10/01/23 12:39 10/01/23 12:39 Labs: Abnormal Lab Results - Last 24 Hours (Table) 10/01/23 10/01/23 10/01/23 Range/Units 12:39 12:39 17:12 RBC 4.33 L (4.40-5.60) X 10*6/uL Hgb 12.6 L (13.0-17.0) g/dL Hct 38.4 L (39.6-50.0) % Chloride 108 H (98-107) mmol/L BUN 8 L (9-20) mg/dL Creatinine 0.57 L (0.66-1.25) mg/dL Glucose 105 H (74-99) mg/dL POC Glucose (mg/dL) 125 H (70-110) mg/dL Calcium 8.3 L (8.4-10.2) mg/dL 10/01/23 10/02/23 Range/Units 19:59 06:53 RBC (4.40-5.60) X 10*6/uL Hgb (13.0-17.0) g/dL Hct (39.6-50.0) % Chloride (98-107) mmol/L BUN (9-20) mg/dL Creatinine (0.66-1.25) mg/dL Glucose (74-99) mg/dL POC Glucose (mg/dL) 151 H 126 H (70-110) mg/dL Calcium (8.4-10.2) mg/dL Microbiology - Last 24 Hours (Table) 09/30/23 05:25 Blood Culture - Preliminary Blood 09/27/23 23:44 Blood Culture Gram Stain - Final Blood Blood Culture - Final Staphylococcus epidermidis Staphylococcus hominis Molecular ID 09/27/23 23:59 Blood Culture Gram Stain - Final Blood Blood Culture - Final Staphylococcus epidermidis Staphylococcus capitis Assessment and Plan (1) Bacteremia Status: Acute Code(s): R78.81 - BACTEREMIA SNOMED Code(s): 6090637 Plan: 1patient presented to the hospital with symptoms of weakness and debility he did have a fever admission that has subsequently resolved did have a positive blood culture which is now growing 3 different pathogen mostly skin flaco and likely representing contamination patient did have MRI of the lumbar spine did not show any evidence of discitis or osteomyelitis echocardiogram is negative for any vegetation and the patient do not have any cellulitis or joint swelling 2-patient repeat blood culture has been negative advised start course of oral Keflex on discharge prescription has been sent to the pharmacy question concern answered Dictation was produced using [employer] dictation software. please excuse any grammatical, word or spelling errors. Time with Patient: Less than 30
--- NOTE | 2023-10-03 14:44 | P.DS ---
Providers Date of admission: 09/29/23 09:44 Expected date of discharge: 10/02/23 Attending physician: Rashad Cruz Consults: 09/28/23 10:13 Consult Physician Routine Consulting Provider: Félix Sparrow Consult Reason/Comments: Mild confusion and falls Do you want consulting provider notified?: Yes 09/28/23 15:02 Consult Physician Stat Consulting Provider: Tim Jernigan Consult Reason/Comments: Fever, unknown source Do you want consulting provider notified?: Yes 09/29/23 10:10 Consult Physician Routine Consulting Provider: Ari Donnelly Consult Reason/Comments: Spinal canal stenosis L4-5, lumbar spine foraminal stenosis L5-S1, falls Do you want consulting provider notified?: Yes Primary care physician: Rashad Cruz Hospital Course: Final Diagnosis: Recurrent falls, related to dehydration and underlying infection, bacteremia with preliminary blood cultures reporting staph epi,Staph capitis and Staph hominis. Repeat blood culture in progress. Spinal stenosis at L4-L5, reported per radiology studies; orthopedic surgery reporting L4-L5 spondylolisthesis, lumbar spondylosis, degenerative disc disease, L5-S1 neuroforaminal stenosis, L4-5 central canal stenosis as per their review/evaluation and recommending conservative management. Dehydration Acute renal insufficiency, secondary to dehydration, resolved Acute rhabdomyolysis secondary to the above, improving with IV fluid hydration Acute metabolic encephalopathy, present on admission secondary to the above, improving Urinary retention, UA negative for UTI. New onset pre diabetes mellitus, hemoglobin A1c 6.3 Urinary retention, Roldan catheter required, Flomax added to med regimen, follow- up with urology in 1 week outpatient Hospital course:09/28/2023This is a 78-year-old male that comes to the office early. His son was at bedside reports that he went golfing 9 holes 1 week ago. That he had seen him on Friday and that he had a fall at home and it was just not himself. He lives with his daughter primarily. She works regularly and is not there all the time. His son reports other history from the daughter while the patient is rather quiet. The patient indicates that is just not feeling himself. His son reports that he had visited and his father had to urinate quite bad but indicates he was unable to go. He also indicates he is fallen several times this week in the emergency room was found to have significant urinary retention 800+ cc in his bladder. When examining today he was found to have a pulse ox in the 80s on room air. Currently denies any chest pains pressure shortness of breath nausea or vomiting. Vital signs are currently stable however the patient did have a fever of 103.4 early this morning. Labs show essentially normal except for glucose of 196. AST was slightly elevated, CT abdomen pelvis was reviewed. 09/29/2023 neurology workup in progress. Brain CT reported no acute intracranial process. Lumbar spine CT reported spinal canal stenosis L4-5 secondary to broad-based disc bulge and facet hypertrophy with ligamentum flavum laxity, lower lumbar spine foraminal stenosis greatest on the right at L5-S1. Carotid Doppler reported no hemodynamic significant stenosis. Yesterday creatinine kinase elevated at 1010, IV fluids increased, trending down currently 679. Renal function improving. Sodium has normalized. Blood sugars controlled. Hemoglobin A1c 6.3. Tmax 99.3, currently afebrile, normal WBC. Preliminary blood cultures 05/09 reporting gram-positive cocci in clusters. UA negative. maintained on ceftriaxone. 09/30/2023 antibiotics adjusted to cefazolin as per ID. Preliminary blood cultures reporting gram-positive cocci in clusters. CRP elevated 7.3. Lumbar spine MRI reported no evidence for cauda equina or significant spinal canal stenosis, no definitive evidence of disc herniation, mild disc degeneration with associated osteoarthritic changes, no foraminal stenosis worse at L5-S1 with moderate right neuroforaminal stenosis, grade 1 anterolisthesis of L4 and L5 .EEG reported normal, echo reporting normal LV function, EF 55 to 60%. Maintain on IV fluids at 75 MLS per hour, Ck continues trending down, currently 373. Renal function stable. Blood sugars controlled. 10/01/2023 Preliminary blood cultures reporting staph epi,Staph capitis and S taph hominis. Repeat blood culture in progress. maintained on cefazolin labs pending. Afebrile. Denies chest pain, palpitations or shortness of breath. Maintaining O2 sats in the 90s on room air. Denies headache. Ambulated with walker, tolerated exertion well. Denies lightheadedness, dizziness or focal deficits. MRI of brain reported no evidence of intracranial mass or acute/subacute infarct. No abnormal postcontrast enhancement. Mild to moderate generalized atrophy of the brain. Minimal nonspecific white matter changes, likely secondary to small vessel ischemic disease. No evidence for disc herniation or significant spinal canal stenosis. Multilevel disc degeneration with associated osteoarthritic changes. Patient does have C5-C6 neuroforaminal stenosis as per orthopedic spine's review of C-spine MRI. 10/02/2023 denies chest pain, palpitations or shortness of breath. Maintaining O2 sats in the 90s on room air. Denies fever or chills. Urinary retention, requiring Roldan catheter, Flomax added to med regimen. Home care declined by patient and family. Patient to follow-up with urology in 1 week outpatient. Repeat blood culture negative, DC Rx for Keflex,cleared by infectious disease for discharge. Patient will be discharged home today in a stable condition with guarded prognosis. The impression and plan of care has been dictated as directed. : I performed a history and examination of this patient, discussed the same with the dictator. I agree with the dictator's note ,documented as a scribe. Any additional findings or plans will be noted. Patient Condition at Discharge: Stable Plan - Discharge Summary Discharge Rx Participant: Yes New Discharge Prescriptions: New Tamsulosin [Flomax] 0.4 mg PO PC-BRKFST #30 cap Cephalexin [Keflex] 500 mg PO Q8HR 10 Days #30 cap Acetaminophen Tab [Tylenol] 650 mg PO Q6HR PRN tab PRN Reason: Fever And/ Or Pain Discharge Medication List Acetaminophen Tab [Tylenol] 650 mg PO Q6HR PRN tab 10/01/23 [Rx] Cephalexin [Keflex] 500 mg PO Q8HR 10 Days #30 cap 10/01/23 [Rx] Tamsulosin [Flomax] 0.4 mg PO PC-BRKFST #30 cap 10/01/23 [Rx] Follow up Appointment(s)/Referral(s): Michael Smith MD [STAFF PHYSICIAN] - 10/08/23 2:20 pm Ari Donnelly DO [Doctor of Osteopathic Medicine] - 2 Weeks (The office was not available to take calls please call and schedule follow up appointment.) Rashad Cruz MD [Primary Care Provider] - 10/07/23 2:45 pm Patient Instructions/Handouts: Cephalexin (By mouth), Tamsulosin (By mouth), Urinary Retention in Men (GEN), Weakness (DC), Altered Mental Status (ED), Urinary Leg Bag (GEN), Bacteremia (DC) Activity/Diet/Wound Care/Special Instructions: *ID also recommends obtaining a set of blood culture a week after completion of his oral antibiotic therapy and if negative no further workup will be recommended * Discharge Disposition: HOME WITH HOME HEALTH SERVICES
== END 2023-10-02 13:49 | disposition home or self-care (01) | DRG 551 ==
LOC: EC 23:05 → 6NMEDSUR 09-28 06:44 → 5NMEDONC 09-29 03:38 → OBSVTOIN 09-29 09:44 → 5NMEDONC 09-29 09:56
PROVIDERS: ADMIT Family Medicine; ATTEND Family Medicine
DX: M51.37 Other intervertebral disc degeneration, lumbosacral region (principal); G93.41 Metabolic encephalopathy; M62.82 Rhabdomyolysis; Z28.310 Unvaccinated for COVID-19; E86.0 Dehydration; M43.16 Spondylolisthesis, lumbar region; M47.816 Spondylosis without myelopathy or radiculopathy, lumbar region; M48.061 Spinal stenosis, lumbar region without neurogenic claudication; M48.07 Spinal stenosis, lumbosacral region; R29.6 Repeated falls; R73.03 Prediabetes; R33.9 Retention of urine, unspecified; R39.15 Urgency of urination; R51.9 Headache, unspecified; R73.9 Hyperglycemia, unspecified; W19.XXXA Unspecified fall, initial encounter; Y92.009 Unspecified place in unspecified non-institutional (private) residence as the place of occurrence of the external cause; Z86.73 Personal history of transient ischemic attack (TIA), and cerebral infarction without residual deficits; Z87.891 Personal history of nicotine dependence; Z91.81 History of falling
CPT/HCPCS: 36415; 51702; 70450; 70553; 71046; 72131; 72148; 72156; 74177; 80048; 80053; 80306; 81001; 82140; 82550; 82607; 82746; 83036; 83605; 83735; 84100; 84443; 84484; 85025; 85027; 85610; 85652; 85730; 86140; 87040; 87077; 87186; 87636; 93005; 93306; 93880; 95816; 96361; 96365; 96366; 96367; 99285

== ENCOUNTER → 2023-10-29 | Outpatient (CLI) | payer MEDICARE ==
[2023-10-29 18:46] LABS: Basophils # (A) 0.04 X 10*3/uL (0.00-0.10); Basophils % (A) 0.5 %; Eosinophils # (A) 0.07 X 10*3/uL (0.04-0.35); Eosinophils % (A) 0.8 %; HCT 41.7 % (39.6-50.0); HGB 13.9 g/dL (13.0-17.0); Lymphocytes # (A) 3.03 X 10*3/uL (0.90-5.00); Lymphocytes % (A) 36.1 %; MCH 28.7 pg (27.0-32.0); MCHC 33.3 g/dL (32.0-37.0); Mean Platelet Volume 9.4 FL (9.5-12.2); Monocytes % (A) 4.8 %; NRBC Per 100 WBC 0 X 10*3/uL (0.00-0.01); Neutrophils # (A) 4.81 X 10*3/uL (1.80-7.70); Neutrophils % (A) 57.3 %; Platelet Count 275 X 10*3/uL (140-440); RBC 4.85 X 10*6/uL (4.40-5.60); RDW 13.2 % (11.5-14.5); WBC 8.39 X 10*3/uL (4.50-10.00)
[2023-10-29 19:09] LABS: Appearance,Urine Cloudy (Clear); Bilirubin,Urine Negative (Negative); Blood,Urine Moderate (Negative); Color,Urine Yellow (Yellow); Ketones,Urine Negative (Negative); Nitrite,Urine Negative (Negative); PH, Urine 8.5; Specific Gravity,Urine 1.017 (1.001-1.030); Urobilinogen,Urine 0.2 E.U./DL
[2023-10-29 19:17] LABS: BUN/Creat Ratio 13.33 Ratio (12.00-20.00); Calcium 9.7 mg/dL (8.7-10.3); Carbon Dioxide 21.6 mmol/L (21.6-31.8); Chloride 103 mmol/L (96-109); Glucose 102 mg/dL (70-110); Sodium 139 mmol/L (135-145)
[2023-10-29 20:05] LABS: Bacteria,Urine 3+ (None Seen); Triple Phosphate Crystal,Urine Present
== END | disposition home or self-care (01) ==
LOC: LABPAT 15:04
PROVIDERS: ATTEND Urology
DX: Z01.812 Encounter for preprocedural laboratory examination (principal); N40.1 Benign prostatic hyperplasia with lower urinary tract symptoms
CPT/HCPCS: 80048; 81001; 85025; 87086